=== PATIENT | female | born 1935 | race Caucasian/White ===

== ENCOUNTER 2018-03-03 18:31 | Emergency (ER) | payer MEDICARE, OTHER | END 2018-03-03 18:45 | disposition left against medical advice (07) | LOC: JD.ED 18:31 | DX: Z53.21 Procedure and treatment not carried out due to patient leaving prior to being seen by health care provider (principal) | CPT/HCPCS: 96361; 96365; 96375; 96376 ==

== ENCOUNTER 2018-03-03 21:10 | Inpatient (IN) | payer MEDICARE, OTHER ==
[2018-03-03] MEDS ORDERED: Sodium Chloride 0.9% 1,000 ML IV SCH (22:00)
--- NOTE | 2018-03-03 22:13 | EDM.PDOC ---
<Mikael Christianson O - Last Filed: 03/04/18 00:12> ED HPI GENERAL MEDICAL PROBLEM - General Chief Complaint: Abdominal Pain Stated Complaint: ABDOMINAL PAIN Time Seen by Provider: 03/03/18 21:45 Source of Information: Reports: Patient History Limitations: Reports: No Limitations - History of Present Illness INITIAL COMMENTS - FREE TEXT/NARRATIVE: Patient is a 82-year-old female presents ED complaining of persistent nausea, abdominal discomfort, and constipation. Patient underwent total right knee replacement 1 week ago has been nauseated ever since. States her appetite has been poor. She's been drinking fluids with no issues. States she's not had a good bowel movement since surgery. Since then she's had multiple small bowel movements described as not gets. No blood present. No pain with urination. No increased flatulence noted. Nauseous persisted with a poor appetite unable to take any medications this evening. Blood pressures elevated with examination. She has not taken her amlodipine, losartan, and Coreg. Patient denies any chest pain, shortness of breath, fever chills, dysuria, syncope, or any additional complaints. Dressing to the right knee was changed yesterday with no concerning findings. She has not been taking Percocet for pain. Tylenol only. Treatments BOTTOM POUNDER CEMENT SHOES: Reports: Other (see below) Other Treatments BOTTOM POUNDER CEMENT SHOES: ttlenol about 1600 today - Related Data Allergies Allergy/AdvReac Type Severity Reaction Status Date / Time animal dander Allergy Cannot Verified 02/19/18 13:12 Remember seasonal Allergy Cannot Uncoded 02/19/18 13:12 Remember Home Meds: Home Meds ALPRAZolam [Xanax] 0.5 mg PO TID PRN 06/19/16 [History] Albuterol Sulfate [Proventil Hfa] 2 puff INH DAILY PRN 06/19/16 [History] Levothyroxine [Synthroid] 100 mcg PO DAILY 06/19/16 [History] Carvedilol 6.25 mg PO BID 02/19/18 [History] Escitalopram Oxalate [Lexapro] 5 mg PO DAILY 02/19/18 [History] Losartan [Cozaar] 50 mg PO BEDTIME 02/19/18 [History] Multivitamin [Daily Multiple Vitamin] 1 tab PO DAILY 02/19/18 [History] amLODIPine [Norvasc] 2.5 mg PO BID 02/19/18 [History] Aspirin [Ecotrin] 325 mg PO BID tab.ec 02/23/18 [Rx] oxyCODONE HCl/Acetaminophen [Percocet 5-325 mg Tablet] 1 - 2 tab PO Q6H PRN #60 tablet 02/23/18 [Rx] Ondansetron HCl [Zofran] 4 mg PO Q8H PRN 03/03/18 [History] Promethazine [Phenergan] 1 applic TOP ASDIRECTED 03/03/18 [History] Past Medical History HEENT History: Reports: Impaired Vision, Other (See Below) Other HEENT History: wears glasses, has upper denture Cardiovascular History: Reports: High Cholesterol, Hypertension Respiratory History: Reports: Asthma Gastrointestinal History: Reports: Other (See Below) Other Gastrointestinal History: daniels's esophagus Genitourinary History: Reports: Other (See Below) Other Genitourinary History: kidney disease [employer] History: Reports: Musculoskeletal History: Reports: Osteoarthritis Neurological History: Reports: None Psychiatric History: Reports: Anxiety Endocrine/Metabolic History: Reports: Hypothyroidism Hematologic History: Reports: None Immunologic History: Reports: None Oncologic (Cancer) History: Reports: None Dermatologic History: Reports: None - Past Surgical History Head Surgeries/Procedures: Reports: None HEENT Surgical History: Reports: Tonsillectomy Cardiovascular Surgical History: Reports: None GI Surgical History: Reports: Colonoscopy, EGD Female Surgical History: Reports: Tubal Ligation Endocrine Surgical History: Reports: None Neurological Surgical History: Reports: None Musculoskeletal Surgical History: Reports: None, Knee Replacement Oncologic Surgical History: Reports: None Social & Family History - Tobacco Use Smoking Status *Q: Former Smoker Used Tobacco, but Quit: Yes Month/Year Tobacco Last Used: 1971 - Caffeine Use Caffeine Use: Reports: Coffee, Soda - Recreational Drug Use Recreational Drug Use: No ED ROS GENERAL - Review of Systems Review Of Systems: ROS reveals no pertinent complaints other than HPI. Constitutional: Reports: Malaise, Decreased Appetite. Denies: Fever, Chills HEENT: Reports: No Symptoms Respiratory: Reports: No Symptoms Cardiovascular: Reports: No Symptoms GI/Abdominal: Reports: Abdominal Pain, Constipation, Decreased Appetite, Distension, Nausea. Denies: Black Stool, Bloody Stool, Diarrhea, Difficulty Swallowing, Flatus, Hematemesis, Melena, Vomiting : Reports: No Symptoms Musculoskeletal: Reports: No Symptoms Skin: Reports: No Symptoms Neurological: Reports: No Symptoms Psychiatric: Reports: No Symptoms ED EXAM, GI/ABD - Physical Exam Exam: See Below Exam Limited By: No Limitations General Appearance: Alert, WD/WN, Mild Distress Ears: Hearing Grossly Normal Nose: Normal Inspection Throat/Mouth: Normal Inspection, Normal Oropharynx, Normal Voice, No Airway Compromise Head: Atraumatic, Normocephalic Neck: Normal Inspection, Supple, Full Range of Motion Respiratory/Chest: No Respiratory Distress, Lungs Clear, Normal Breath Sounds, Chest Non-Tender Cardiovascular: Normal Peripheral Pulses, Regular Rate, Rhythm, No Murmur GI/Abdominal Exam: Soft, Non-Tender, No Organomegaly, No Distention, Abnormal Bowel Sounds (hyperactive) Back Exam: Normal Inspection. No: CVA Tenderness (L), CVA Tenderness (R) Extremities: No Pedal Edema, Other (Surgical dressing in place to the right knee. Replaced yesterday in clincic by Ortho. Compression stocking in place with no posterior lower leg pain. ) Neurological: Alert, Oriented, CN II-XII Intact, Normal Cognition, No Motor/ Sensory Deficits Psychiatric: Normal Affect, Normal Mood Skin Exam: Warm, Dry, Intact, Normal Color Course - Vital Signs Last Recorded V/S: Last Vital Signs Temp 98.1 F 03/03/18 21:31 Pulse 65 03/04/18 00:39 Resp 20 03/03/18 21:31 BP 178/77 H 03/04/18 00:39 Pulse Ox 97 03/03/18 21:31 - Orders/Labs/Meds Orders: Active Orders 24 hr Category Date Time Status EKG 12 Lead [EKG Documentation Completion] [RC] STAT Care 03/03/18 22:05 Active Orthostatic Vital Signs [RC] ASDIRECTED Care 03/03/18 21:47 Active Abdomen 2V AP Flat Upright [CR] Stat Exams 03/03/18 21:46 Taken Abdomen Pelvis w Cont [CT] Stat Exams 03/03/18 22:48 Taken Sodium Chloride 0.9% [Normal Saline] 1,000 ml Med 03/03/18 22:00 Active IV ASDIRECTED Medication Orders Sodium Chloride (Normal Saline) 1,000 mls @ 250 mls/hr IV ASDIRECTED FITO Last Admin: 03/03/18 22:29 Dose: 250 mls/hr Labs: Laboratory Tests 03/03/18 03/03/18 03/03/18 Range/Units 22:29 22:29 22:29 WBC 12.38 H (3.98-10.04) K/mm3 RBC 4.01 (3.98-5.22) M/mm3 Hgb 12.5 (11.2-15.7) gm/L Hct 35.6 (34.1-44.9) % MCV 88.8 (79.4-94.8) fl MCH 31.2 (25.6-32.2) pg MCHC 35.1 (32.2-35.5) g/dl RDW Std Deviation 37.6 (36.4-46.3) fL Plt Count 442 H (182-369) K/mm3 MPV 7.7 L (9.4-12.3) fl Neutrophils % (Manual) 72 H (40-60) % Band Neutrophils % 0 (0-10) % Lymphocytes % (Manual) 9 L (20-40) % Atypical Lymphs % 3 % Monocytes % (Manual) 12 H (2-10) % Eosinophils % (Manual) 3 (0.7-5.8) % Basophils % (Manual) 0 L (0.1-1.2) Promyelocytes % 1 Toxic Granulation 1+ slight Platelet Estimate Increased Plt Morphology Comment Normal RBC Morph Comment Normal Sodium 122 L (136-145) mEq/L Potassium 4.2 (3.5-5.1) mEq/L Chloride 87 L (98-107) mEq/L Carbon Dioxide 24 (21-32) mEq/L Anion Gap 15.2 H (5-15) BUN 13 (7-18) mg/dL Creatinine 0.8 (0.55-1.02) mg/dL Est Cr Clr Drug Dosing 58.61 mL/min Estimated GFR (MDRD) > 60 (>60) mL/min BUN/Creatinine Ratio 16.3 (14-18) Glucose 127 H (83-115) mg/dL Calcium 9.0 (8.5-10.1) mg/dL Total Bilirubin 0.9 (0.2-1.0) mg/dL AST 28 (15-37) U/L ALT 24 (14-59) U/L Alkaline Phosphatase 63 (46-116) U/L Troponin I < 0.017 (0.00-0.056) ng/mL C-Reactive Protein 1.9 H* (<1.0) mg/dL Total Protein 7.5 (6.4-8.2) g/dl Albumin 3.6 (3.4-5.0) g/dl Globulin 3.9 gm/dL Albumin/Globulin Ratio 0.9 L (1-2) Urine Color (Yellow) Urine Appearance (Clear) Urine pH (5.0-8.0) Ur Specific [place] (1.005-1.030) Urine Protein (Negative) Urine Glucose (UA) (Negative) Urine Ketones (Negative) Urine Occult Blood (Negative) Urine Nitrite (Negative) Urine Bilirubin (Negative) Urine Urobilinogen (0.2-1.0) Ur Leukocyte Esterase (Negative) Urine RBC (0-5) /hpf Urine WBC (0-5) /hpf Urine WBC Clumps (NOT SEEN) /hpf Ur Epithelial Cells (0-5) /hpf Urine Bacteria (FEW) /hpf Urine Mucus (FEW) /hpf 03/04/18 Range/Units 02:30 WBC (3.98-10.04) K/mm3 RBC (3.98-5.22) M/mm3 Hgb (11.2-15.7) gm/L Hct (34.1-44.9) % MCV (79.4-94.8) fl MCH (25.6-32.2) pg MCHC (32.2-35.5) g/dl RDW Std Deviation (36.4-46.3) fL Plt Count (182-369) K/mm3 MPV (9.4-12.3) fl Neutrophils % (Manual) (40-60) % Band Neutrophils % (0-10) % Lymphocytes % (Manual) (20-40) % Atypical Lymphs % % Monocytes % (Manual) (2-10) % Eosinophils % (Manual) (0.7-5.8) % Basophils % (Manual) (0.1-1.2) Promyelocytes % Toxic Granulation Platelet Estimate Plt Morphology Comment RBC Morph Comment Sodium (136-145) mEq/L Potassium (3.5-5.1) mEq/L Chloride (98-107) mEq/L Carbon Dioxide (21-32) mEq/L Anion Gap (5-15) BUN (7-18) mg/dL Creatinine (0.55-1.02) mg/dL Est Cr Clr Drug Dosing mL/min Estimated GFR (MDRD) (>60) mL/min BUN/Creatinine Ratio (14-18) Glucose (83-115) mg/dL Calcium (8.5-10.1) mg/dL Total Bilirubin (0.2-1.0) mg/dL AST (15-37) U/L ALT (14-59) U/L Alkaline Phosphatase (46-116) U/L Troponin I (0.00-0.056) ng/mL C-Reactive Protein (<1.0) mg/dL Total Protein (6.4-8.2) g/dl Albumin (3.4-5.0) g/dl Globulin gm/dL Albumin/Globulin Ratio (1-2) Urine Color Yellow (Yellow) Urine Appearance Clear (Clear) Urine pH 6.0 (5.0-8.0) Ur Specific [place] 1.015 (1.005-1.030) Urine Protein Negative (Negative) Urine Glucose (UA) Negative (Negative) Urine Ketones Negative (Negative) Urine Occult Blood Trace-intact H (Negative) Urine Nitrite Negative (Negative) Urine Bilirubin Negative (Negative) Urine Urobilinogen 2.0 H (0.2-1.0) Ur Leukocyte Esterase Negative (Negative) Urine RBC 0-5 (0-5) /hpf Urine WBC 0-5 (0-5) /hpf Urine WBC Clumps Few (NOT SEEN) /hpf Ur Epithelial Cells 0-5 (0-5) /hpf Urine Bacteria Rare (FEW) /hpf Urine Mucus Not seen (FEW) /hpf Meds: Medications Generic Name Dose Route Start Last Admin Trade Name Freq PRN Reason Stop Dose Admin Sodium Chloride 1,000 mls @ 250 mls/hr 03/03/18 22:00 03/03/18 22:29 Normal Saline IV 250 mls/hr ASDIRECTED FITO Administration Discontinued Medications Generic Name Dose Route Start Last Admin Trade Name Freq PRN Reason Stop Dose Admin Labetalol HCl 10 mg 03/03/18 22:56 03/03/18 23:03 Normodyne IVPUSH 03/03/18 22:57 10 mg ONETIME ONE Administration Protocol Labetalol HCl 10 mg 03/04/18 00:14 03/04/18 00:39 Normodyne IVPUSH 03/04/18 00:15 10 mg ONETIME ONE Administration Protocol Ondansetron HCl 4 mg 03/03/18 22:15 03/03/18 22:29 Zofran IVPUSH 03/03/18 22:16 4 mg ONETIME ONE Administration - Re-Assessments/Exams Free Text/Narrative Re-Assessment/Exam: IV established with normal saline 250 mL per hour. IV Zofran ordered as well. Initial labs and studies include: CBC, chem 14, CRP, UA, troponin, 2 view abdomen flat and upright, and orthostatic vitals. EKG: SR rate of [address] changes noted. Xray of the abdomen: Large air/fluid level to the RLQ. Ordered CT abdomen/ pelvis with oral/IV contrast. 2258 BP 188/82. Patient has not taken any of her blood pressure medications this evening. Ordered labetalol 10 mg IVP. 0000 Labs reviewed: Sodium 122, potassium 4.2, chloride 87, AG 15.2, creatinine 0.8, glucose 127, troponin within normal limits, CRP 1.9. White blood cell count 12.8, hemoglobin 12.5, platelet count 442, neutrophil percentage is 72, no left shift. Patient does not provide a UA sample yet. Blood pressure remains elevated 182/S. Ordered additional 10mg IVP of labetalol. Departure - Departure Disposition: Admitted As Inpatient 68 Clinical Impression: Hyponatremia, Colitis, Nausea, Mass of stomach - Discharge Information Referrals: Jayden Smith MD [Primary Care Provider] - Forms: ED Department Discharge <Jorge Hernandez - Last Filed: 03/04/18 03:31> Course - Re-Assessments/Exams Free Text/Narrative Re-Assessment/Exam: 03/04/18 03:[address] came back and it shows mild colitis involving the transverse colon. No evidence for abscess or bowel obstruction. Soft tissue mass noted at the GE junction. This measures 5.6cm in diameter. Endoscopy is suggested to rule out a GE neoplasm or polyp. Her UA shows no UTI. I feel she needs to be admitted. I called Dr Parrish and she accepted. She wanted some levaquin started and her rate for fluids down to 100mg/hr. Departure - Departure Time of Disposition: 03:30 Condition: Good
[2018-03-03] MEDS ORDERED: Ondansetron 4 MG/2 ML SDV IVPUSH ONE (22:15)
[2018-03-03] MEDS ORDERED: Labetalol 100 MG/20 ML MDV IVPUSH ONE (22:56)
[2018-03-04] MEDS ORDERED: Labetalol 100 MG/20 ML MDV IVPUSH ONE (00:14)
[2018-03-04] MEDS ORDERED: Levofloxacin/Dextrose 5%-Water 750 MG in Premix Bag 1 BAG IV ONE (03:33)
[2018-03-04] MEDS: Sodium Chloride 0.9% 1,000 ML IV SCH ×2 (03:42→14:05)
[2018-03-04] MEDS ORDERED: Magnesium Sulfate/Water 2 GM in Premix Bag 1 BAG IV ONE (04:41)
[2018-03-04] MEDS ORDERED: HYDROmorphone 1 MG/ML Syringe IVPUSH PRN (04:42)
[2018-03-04] MEDS: Ondansetron 4 MG/2 ML SDV IVPUSH PRN ×2 (05:48→17:42)
[2018-03-04] MEDS: Famotidine 20 MG/2 ML SDV IVPUSH SCH (10:18)
[2018-03-04] MEDS ORDERED: HYDROmorphone 0.5 MG/0.5 ML Syringe IVPUSH PRN (10:37)
[2018-03-04] MEDS ORDERED: Scopolamine 1.5 MG Transdermal Patch TRDERM PRN (11:17)
--- NOTE | 2018-03-04 12:15 | PCM.HP ---
<Penelope Dale - Last Filed: 03/04/18 13:43> H&P History of Present Illness - General Date of Service: 03/04/18 Admit Problem/Dx: Admission Diagnosis/Problem Admission Diagnosis/Problem Colitis Source of Information: Patient History Limitations: Reports: No Limitations - History of Present Illness Initial Comments - Free Text/Narative: Lashell Georges is an 82 year old female who presented to the ER yesterday complaining of persistent nausea, abdominal discomfort, and constipation. Patient underwent total right knee replacement on February 22 and has been nauseated ever since. States her appetite has been poor, eating <25% of normal. She's been drinking fluids with no issues. States she's not had a good bowel movement since surgery. Since then she's had multiple small bowel movements described as nuggets. Denies black/tarry stools or blood in stools. No pain with urination. No increased flatulence noted. Nauseous persisted with a poor appetite unable to take any medications yesterday evening. Blood pressures elevated with examination. She has not taken her amlodipine, losartan, and carvedilol. Patient denies any chest pain, shortness of breath, fever chills, dysuria, syncope, or any additional complaints. Dressing to the right knee was changed 2 days ago with no concerning findings. She has not been taking Percocet for pain. Tylenol only. Today, the patient reports relief of the abdominal discomfort which she believes is from contrast associated diarrhea overnight. Her nausea persists. Has not vomited since the day after surgery. Onset of Symptoms: Reports: Other (Nauseous since knee replacement, abdominal discomfort gradual) Associated Symptoms: Reports: Loss of Appetite - Related Data Allergies/Adverse Reactions: Allergies Allergy/AdvReac Type Severity Reaction Status Date / Time animal dander Allergy Cannot Verified 02/19/18 13:12 Remember seasonal Allergy Cannot Uncoded 02/19/18 13:12 Remember Home Medications: Home Meds ALPRAZolam [Xanax] 0.5 mg PO TID PRN 06/19/16 [History] Albuterol Sulfate [Proventil Hfa] 2 puff INH DAILY PRN 06/19/16 [History] Levothyroxine [Synthroid] 100 mcg PO DAILY 06/19/16 [History] Carvedilol 6.25 mg PO BID 02/19/18 [History] Escitalopram Oxalate [Lexapro] 5 mg PO DAILY 02/19/18 [History] Losartan [Cozaar] 50 mg PO BEDTIME 02/19/18 [History] Multivitamin [Daily Multiple Vitamin] 1 tab PO DAILY 02/19/18 [History] amLODIPine [Norvasc] 2.5 mg PO BID 02/19/18 [History] Aspirin [Ecotrin] 325 mg PO BID tab.ec 02/23/18 [Rx] oxyCODONE HCl/Acetaminophen [Percocet 5-325 mg Tablet] 1 - 2 tab PO Q6H PRN #60 tablet 02/23/18 [Rx] Ondansetron HCl [Zofran] 4 mg PO Q8H PRN 03/03/18 [History] Promethazine [Phenergan] 1 applic TOP ASDIRECTED 03/03/18 [History] Past Medical History HEENT History: Reports: Impaired Vision, Other (See Below) Other HEENT History: wears glasses, has upper denture Cardiovascular History: Reports: High Cholesterol, Hypertension Respiratory History: Reports: Asthma Gastrointestinal History: Reports: Other (See Below) Other Gastrointestinal History: Colonoscopy in 2015 notable for hyperplastic polyps, tubular adenoma, and sessile serrated adenoma. 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: (4 children; tubal ligation) Musculoskeletal History: Reports: Osteoarthritis Neurological History: Reports: None Psychiatric History: Reports: Anxiety Endocrine/Metabolic History: Reports: Hypothyroidism Hematologic History: Reports: None Immunologic History: Reports: None Oncologic (Cancer) History: Reports: None Dermatologic History: Reports: None - Past Surgical History Head Surgeries/Procedures: Reports: None HEENT Surgical History: Reports: Tonsillectomy Cardiovascular Surgical History: Reports: None GI Surgical History: Reports: Colonoscopy, EGD Female Surgical History: Reports: Tubal Ligation Endocrine Surgical History: Reports: None Neurological Surgical History: Reports: None Musculoskeletal Surgical History: Reports: None, Knee Replacement Oncologic Surgical History: Reports: None Social & Family History - Family History Family Medical History: Noncontributory - Tobacco Use Smoking Status *Q: Former Smoker (1 pack per day for 18 years) Years of Tobacco use: 16 Used Tobacco, but Quit: Yes Month/Year Tobacco Last Used: 1971 Second Hand Smoke Exposure: No - Caffeine Use Caffeine Use: Reports: Coffee - Recreational Drug Use Recreational Drug Use: No H&P Review of Systems - Review of Systems: Review Of Systems: See Below General: Reports: Decreased Appetite. Denies: Fever, Chills, Weakness HEENT: Reports: Glasses. Denies: Dysphasia, Ear Pain, Eye Pain, Headaches, Visual Changes Pulmonary: Reports: No Symptoms Cardiovascular: Reports: No Symptoms Gastrointestinal: Reports: Abdominal Pain (Resolved), Constipation (Resolved), Diarrhea (Due to CT contrast), Decreased Appetite, Nausea. Denies: Black Stool , Bloody Stool, Difficulty Swallowing, Hematemesis, Hematochezia, Melena Genitourinary: Reports: No Symptoms Musculoskeletal: Reports: No Symptoms (States that she is moving around well and not having problems with her joint replacement) Skin: Reports: No Symptoms, Bruising (To surgical area) Psychiatric: Reports: No Symptoms Neurological: Reports: No Symptoms Hematologic/Lymphatic: Reports: No Symptoms Immunologic: Reports: Seasonal Allergy Exam - Exam Exam: See Below - Vital Signs Vital Signs: Last Vital Signs Temp 98.1 F 03/04/18 04:18 Pulse 67 03/04/18 04:18 Resp 18 03/04/18 04:18 BP 139/62 03/04/18 04:18 Pulse Ox 96 03/04/18 04:18 Weight: 164 lb 1 oz - Exam Quality Assessment: DVT Prophylaxis General: Alert, Oriented, Cooperative HEENT: Conjunctiva Clear, EOMI, Hearing Intact, Mucosa Moist & [place], Nares Patent, Pupils Equal, Pupils Reactive Neck: Supple, +2 Carotid Pulse wo Bruit, Full Range of Motion. No: Lymphadenopathy Lungs: Clear to Auscultation, Normal Respiratory Effort Cardiovascular: Regular Rate, Regular Rhythm, Normal S1, Normal S2 GI/Abdominal Exam: Soft, Non-Tender, Abnormal Bowel Sounds (Hyperactive) (Female) Exam: Deferred Rectal (Female) Exam: Deferred Back Exam: Normal Inspection, Full Range of Motion Extremities: Normal Inspection, Normal Range of Motion, Non-Tender, No Pedal Edema, Normal Capillary Refill Peripheral Pulses: 2+: Carotid (L), Carotid (R), Radial (L), Radial (R), Posterior Tibial (L), Posterior Tibial (R), Dorsalis Pedis (L), Dorsalis Pedis ( R) Skin: Warm, Dry, Intact Neurological: Cranial Nerves Intact, Normal Gait, Normal Speech Neuro Extensive - Mental Status: Alert, Oriented x3, Normal Mood/Affect, Normal Cognition Neuro Extensive - Motor, Sensory, Reflexes: CN II-XII Intact (Grossly), Normal Gait Psychiatric: Alert, Normal Affect, Normal Mood - Patient Data Lab Results Last 24 hrs: Laboratory Results - last 24 hr 03/03/18 03/03/18 03/03/18 Range/Units 22:29 22:29 22:29 WBC 12.38 H (3.98-10.04) K/mm3 RBC 4.01 (3.98-5.22) M/mm3 Hgb 12.5 (11.2-15.7) gm/L Hct 35.6 (34.1-44.9) % MCV 88.8 (79.4-94.8) fl MCH 31.2 (25.6-32.2) pg MCHC 35.1 (32.2-35.5) g/dl RDW Std Deviation 37.6 (36.4-46.3) fL Plt Count 442 H (182-369) K/mm3 MPV 7.7 L (9.4-12.3) fl Neutrophils % (Manual) 72 H (40-60) % Band Neutrophils % 0 (0-10) % Lymphocytes % (Manual) 9 L (20-40) % Atypical Lymphs % 3 % Monocytes % (Manual) 12 H (2-10) % Eosinophils % (Manual) 3 (0.7-5.8) % Basophils % (Manual) 0 L (0.1-1.2) Promyelocytes % 1 Toxic Granulation 1+ slight Platelet Estimate Increased Plt Morphology Comment Normal Poikilocytosis Anisocytosis RBC Morph Comment Normal Sodium 122 L (136-145) mEq/L Potassium 4.2 (3.5-5.1) mEq/L Chloride 87 L (98-107) mEq/L Carbon Dioxide 24 (21-32) mEq/L Anion Gap 15.2 H (5-15) BUN 13 (7-18) mg/dL Creatinine 0.8 (0.55-1.02) mg/dL Est Cr Clr Drug Dosing 58.61 mL/min Estimated GFR (MDRD) > 60 (>60) mL/min BUN/Creatinine Ratio 16.3 (14-18) Glucose 127 H (83-115) mg/dL Lactic Acid (0.4-2.0) mmol/L Calcium 9.0 (8.5-10.1) mg/dL Total Bilirubin 0.9 (0.2-1.0) mg/dL AST 28 (15-37) U/L ALT 24 (14-59) U/L Alkaline Phosphatase 63 (46-116) U/L Troponin I < 0.017 (0.00-0.056) ng/mL C-Reactive Protein 1.9 H* (<1.0) mg/dL NT-Pro-B Natriuret Pep (0-450) pg/mL Total Protein 7.5 (6.4-8.2) g/dl Albumin 3.6 (3.4-5.0) g/dl Globulin 3.9 gm/dL Albumin/Globulin Ratio 0.9 L (1-2) Urine Color (Yellow) Urine Appearance (Clear) Urine pH (5.0-8.0) Ur Specific [place] (1.005-1.030) Urine Protein (Negative) Urine Glucose (UA) (Negative) Urine Ketones (Negative) Urine Occult Blood (Negative) Urine Nitrite (Negative) Urine Bilirubin (Negative) Urine Urobilinogen (0.2-1.0) Ur Leukocyte Esterase (Negative) Urine RBC (0-5) /hpf Urine WBC (0-5) /hpf Urine WBC Clumps (NOT SEEN) /hpf Ur Epithelial Cells (0-5) /hpf Urine Bacteria (FEW) /hpf Urine Mucus (FEW) /hpf 03/04/18 03/04/18 03/04/18 Range/Units 02:30 05:40 05:40 WBC 12.08 H (3.98-10.04) K/mm3 RBC 3.61 L (3.98-5.22) M/mm3 Hgb 11.0 L (11.2-15.7) gm/L Hct 32.0 L (34.1-44.9) % MCV 88.6 (79.4-94.8) fl MCH 30.5 (25.6-32.2) pg MCHC 34.4 (32.2-35.5) g/dl RDW Std Deviation 37.7 (36.4-46.3) fL Plt Count 426 H (182-369) K/mm3 MPV 7.9 L (9.4-12.3) fl Neutrophils % (Manual) 77 H (40-60) % Band Neutrophils % 1 (0-10) % Lymphocytes % (Manual) 18 L (20-40) % Atypical Lymphs % 0 % Monocytes % (Manual) 1 L (2-10) % Eosinophils % (Manual) 2 (0.7-5.8) % Basophils % (Manual) 1 (0.1-1.2) Promyelocytes % Toxic Granulation Platelet Estimate Adequate Plt Morphology Comment Poikilocytosis 1+ slight Anisocytosis 1+ slight RBC Morph Comment inpatient auditor Sodium 121 L (136-145) mEq/L Potassium 3.9 (3.5-5.1) mEq/L Chloride 89 L (98-107) mEq/L Carbon Dioxide 23 (21-32) mEq/L Anion Gap 12.9 (5-15) BUN 10 (7-18) mg/dL Creatinine 0.7 (0.55-1.02) mg/dL Est Cr Clr Drug Dosing 66.99 mL/min Estimated GFR (MDRD) > 60 (>60) mL/min BUN/Creatinine Ratio 14.3 (14-18) Glucose 129 H (83-115) mg/dL Lactic Acid (0.4-2.0) mmol/L Calcium 7.8 L (8.5-10.1) mg/dL Total Bilirubin (0.2-1.0) mg/dL AST (15-37) U/L ALT (14-59) U/L Alkaline Phosphatase (46-116) U/L Troponin I (0.00-0.056) ng/mL C-Reactive Protein 1.6 H* (<1.0) mg/dL NT-Pro-B Natriuret Pep (0-450) pg/mL Total Protein (6.4-8.2) g/dl Albumin (3.4-5.0) g/dl Globulin gm/dL Albumin/Globulin Ratio (1-2) Urine Color Yellow (Yellow) Urine Appearance Clear (Clear) Urine pH 6.0 (5.0-8.0) Ur Specific [place] 1.015 (1.005-1.030) Urine Protein Negative (Negative) Urine Glucose (UA) Negative (Negative) Urine Ketones Negative (Negative) Urine Occult Blood Trace-intact H (Negative) Urine Nitrite Negative (Negative) Urine Bilirubin Negative (Negative) Urine Urobilinogen 2.0 H (0.2-1.0) Ur Leukocyte Esterase Negative (Negative) Urine RBC 0-5 (0-5) /hpf Urine WBC 0-5 (0-5) /hpf Urine WBC Clumps Few (NOT SEEN) /hpf Ur Epithelial Cells 0-5 (0-5) /hpf Urine Bacteria Rare (FEW) /hpf Urine Mucus Not seen (FEW) /hpf 03/04/18 03/04/18 Range/Units 05:40 05:40 WBC (3.98-10.04) K/mm3 RBC (3.98-5.22) M/mm3 Hgb (11.2-15.7) gm/L Hct (34.1-44.9) % MCV (79.4-94.8) fl MCH (25.6-32.2) pg MCHC (32.2-35.5) g/dl RDW Std Deviation (36.4-46.3) fL Plt Count (182-369) K/mm3 MPV (9.4-12.3) fl Neutrophils % (Manual) (40-60) % Band Neutrophils % (0-10) % Lymphocytes % (Manual) (20-40) % Atypical Lymphs % % Monocytes % (Manual) (2-10) % Eosinophils % (Manual) (0.7-5.8) % Basophils % (Manual) (0.1-1.2) Promyelocytes % Toxic Granulation Platelet Estimate Plt Morphology Comment Poikilocytosis Anisocytosis RBC Morph Comment Sodium (136-145) mEq/L Potassium (3.5-5.1) mEq/L Chloride (98-107) mEq/L Carbon Dioxide (21-32) mEq/L Anion Gap (5-15) BUN (7-18) mg/dL Creatinine (0.55-1.02) mg/dL Est Cr Clr Drug Dosing mL/min Estimated GFR (MDRD) (>60) mL/min BUN/Creatinine Ratio (14-18) Glucose (83-115) mg/dL Lactic Acid 0.8 (0.4-2.0) mmol/L Calcium (8.5-10.1) mg/dL Total Bilirubin (0.2-1.0) mg/dL AST (15-37) U/L ALT (14-59) U/L Alkaline Phosphatase (46-116) U/L Troponin I (0.00-0.056) ng/mL C-Reactive Protein (<1.0) mg/dL NT-Pro-B Natriuret Pep 533 H (0-450) pg/mL Total Protein (6.4-8.2) g/dl Albumin (3.4-5.0) g/dl Globulin gm/dL Albumin/Globulin Ratio (1-2) Urine Color (Yellow) Urine Appearance (Clear) Urine pH (5.0-8.0) Ur Specific [place] (1.005-1.030) Urine Protein (Negative) Urine Glucose (UA) (Negative) Urine Ketones (Negative) Urine Occult Blood (Negative) Urine Nitrite (Negative) Urine Bilirubin (Negative) Urine Urobilinogen (0.2-1.0) Ur Leukocyte Esterase (Negative) Urine RBC (0-5) /hpf Urine WBC (0-5) /hpf Urine WBC Clumps (NOT SEEN) /hpf Ur Epithelial Cells (0-5) /hpf Urine Bacteria (FEW) /hpf Urine Mucus (FEW) /hpf Result Diagrams: 03/04/18 05:40 03/04/18 05:40 Problem List Initiated/Reviewed/Updated: Yes Orders Last 24hrs: Active Orders 24 hr Category Date Time Status Patient Status [ADT] Routine ADT 03/04/18 03:28 Active Activity as Tolerated [RC] .Routine Care 03/04/18 04:57 Active Bedrest [RC] ASDIRECTED Care 03/04/18 04:47 Active Notify Provider Consults [RC] ASDIRECTED Care 03/04/18 10:06 Active Consult to Case Management [CONS] Routine Cons 03/04/18 04:46 Active Consult to Physician [CONS] Routine Cons 03/04/18 10:05 Active OT Evaluation and Treatment [CONS] Routine Cons 03/04/18 04:46 Active PT Evaluation and Treatment [CONS] Routine Cons 03/04/18 04:45 Active Clear Liquid Diet [DIET] Diet 03/04/18 Breakfast Active Abdomen 2V AP Flat Upright [CR] Stat Exams 03/03/18 21:46 Taken Abdomen Pelvis w Cont [CT] Stat Exams 03/03/18 22:48 Taken Acetaminophen [Tylenol] Med 03/04/18 04:43 Active 650 mg PO Q6H PRN Famotidine [Pepcid] Med 03/04/18 09:00 Active 40 mg IVPUSH DAILY HYDROmorphone [Dilaudid] Med 03/04/18 10:37 Active 0.5 mg IVPUSH Q4H PRN Levofloxacin/Dextrose 5%-Water [Levaquin in D5W 750 MG/ Med 03/05/18 04:00 Active 150 ML] 750 mg Premix Bag 1 bag IV Q24H Ondansetron [Zofran] Med 03/04/18 04:43 Active 4 mg IVPUSH Q8H PRN Remove Patch Med 03/07/18 11:00 Active 1 ea TRDERM Q72H Scopolamine [Transderm-Scop] Med 03/04/18 11:17 Active 1.5 mg TRDERM Q72H PRN Sodium Chloride 0.9% [Normal Saline] 1,000 ml Med 03/04/18 03:45 Active IV ASDIRECTED SCD [Sequential Compression Device] [OM.PC] Routine Oth 03/04/18 04:45 Ordered Code Status [Resuscitation Status] Routine Resus Stat 03/04/18 04:46 Ordered Medication Orders Acetaminophen (Tylenol) 650 mg PO Q6H PRN PRN Reason: Pain/Fever Famotidine (Pepcid) 40 mg IVPUSH DAILY FITO Last Admin: 03/04/18 10:18 Dose: 40 mg Hydromorphone HCl (Dilaudid) 0.5 mg IVPUSH Q4H PRN PRN Reason: Pain Sodium Chloride (Normal Saline) 1,000 mls @ 100 mls/hr IV ASDIRECTED FITO Last Admin: 03/04/18 03:42 Dose: 100 mls/hr Levofloxacin/Dextrose 750 mg/ (Premix) 150 mls @ 100 mls/hr IV Q24H FITO Miscellaneous Information (Remove Patch) 1 ea TRDERM Q72H FITO Ondansetron HCl (Zofran) 4 mg IVPUSH Q8H PRN PRN Reason: Nausea/Vomiting Last Admin: 03/04/18 05:48 Dose: 4 mg Scopolamine (Transderm-Scop) 1.5 mg TRDERM Q72H PRN PRN Reason: Nausea Last Admin: 03/04/18 11:30 Dose: 1.5 mg Assessment/Plan Comment:: Assessment: Acute: Nausea * Severe nausea since knee replacement February 22 * Patient reports tolerating liquids, but very poor food intake. Denies vomiting since one day after surgery. * Odansetron and scopolamine patch not offering much relief Colitis * Transverse colon colitis noted on CT scan * Patient presented with nausea, constipation, and abdominal discomfort * Constipation and abdominal discomfort have resolved * WBC elevated at 12.38 --> 12.08 Hyponatremia * Sodium 122 * Last 2 annual CMPs with her PCP have showed a sodium of 133 Hypertension * Acute on chronic * Due to inability to take medications 2/2 nausea * 178/77 --> 139/62 with IV labetalol Gastroesophageal Junction Mass * As evidenced by CT scan * Edmondson's esophagus diagnosed by EGD in 2016; patient denies ever experiencing GERD Chronic: Hypercholesterolemia Asthma Osteoarthritis Hypothyroidism Anxiety Plan: Admit to medical floor Clear liquid diet, advance as tolerated Continue IV hydration Resume home medications Routine AM labs Consulted Dr. Landry (surgeon) DVT prophylaxis: SCDs GI prophylaxis PT/OT Code status: Full code; PCP Dr. Kenney <Nhung Lima - Last Filed: 03/04/18 15:40> H&P History of Present Illness - General Admit Problem/Dx: Admission Diagnosis/Problem Admission Diagnosis/Problem Colitis Exam - Vital Signs Vital Signs: Last Vital Signs Temp 98.1 F 03/04/18 04:18 Pulse 67 03/04/18 04:18 Resp 18 03/04/18 04:18 BP 139/62 03/04/18 04:18 Pulse Ox 96 03/04/18 04:18 - Patient Data Lab Results Last 24 hrs: Laboratory Results - last 24 hr 03/03/18 03/03/18 03/03/18 Range/Units 22:29 22:29 22:29 WBC 12.38 H (3.98-10.04) K/mm3 RBC 4.01 (3.98-5.22) M/mm3 Hgb 12.5 (11.2-15.7) gm/L Hct 35.6 (34.1-44.9) % MCV 88.8 (79.4-94.8) fl MCH 31.2 (25.6-32.2) pg MCHC 35.1 (32.2-35.5) g/dl RDW Std Deviation 37.6 (36.4-46.3) fL Plt Count 442 H (182-369) K/mm3 MPV 7.7 L (9.4-12.3) fl Neutrophils % (Manual) 72 H (40-60) % Band Neutrophils % 0 (0-10) % Lymphocytes % (Manual) 9 L (20-40) % Atypical Lymphs % 3 % Monocytes % (Manual) 12 H (2-10) % Eosinophils % (Manual) 3 (0.7-5.8) % Basophils % (Manual) 0 L (0.1-1.2) Promyelocytes % 1 Toxic Granulation 1+ slight Platelet Estimate Increased Plt Morphology Comment Normal Poikilocytosis Anisocytosis RBC Morph Comment Normal Sodium 122 L (136-145) mEq/L Potassium 4.2 (3.5-5.1) mEq/L Chloride 87 L (98-107) mEq/L Carbon Dioxide 24 (21-32) mEq/L Anion Gap 15.2 H (5-15) BUN 13 (7-18) mg/dL Creatinine 0.8 (0.55-1.02) mg/dL Est Cr Clr Drug Dosing 58.61 mL/min Estimated GFR (MDRD) > 60 (>60) mL/min BUN/Creatinine Ratio 16.3 (14-18) Glucose 127 H (83-115) mg/dL Lactic Acid (0.4-2.0) mmol/L Calcium 9.0 (8.5-10.1) mg/dL Total Bilirubin 0.9 (0.2-1.0) mg/dL AST 28 (15-37) U/L ALT 24 (14-59) U/L Alkaline Phosphatase 63 (46-116) U/L Troponin I < 0.017 (0.00-0.056) ng/mL C-Reactive Protein 1.9 H* (<1.0) mg/dL NT-Pro-B Natriuret Pep (0-450) pg/mL Total Protein 7.5 (6.4-8.2) g/dl Albumin 3.6 (3.4-5.0) g/dl Globulin 3.9 gm/dL Albumin/Globulin Ratio 0.9 L (1-2) Urine Color (Yellow) Urine Appearance (Clear) Urine pH (5.0-8.0) Ur Specific [place] (1.005-1.030) Urine Protein (Negative) Urine Glucose (UA) (Negative) Urine Ketones (Negative) Urine Occult Blood (Negative) Urine Nitrite (Negative) Urine Bilirubin (Negative) Urine Urobilinogen (0.2-1.0) Ur Leukocyte Esterase (Negative) Urine RBC (0-5) /hpf Urine WBC (0-5) /hpf Urine WBC Clumps (NOT SEEN) /hpf Ur Epithelial Cells (0-5) /hpf Urine Bacteria (FEW) /hpf Urine Mucus (FEW) /hpf 03/04/18 03/04/18 03/04/18 Range/Units 02:30 05:40 05:40 WBC 12.08 H (3.98-10.04) K/mm3 RBC 3.61 L (3.98-5.22) M/mm3 Hgb 11.0 L (11.2-15.7) gm/L Hct 32.0 L (34.1-44.9) % MCV 88.6 (79.4-94.8) fl MCH 30.5 (25.6-32.2) pg MCHC 34.4 (32.2-35.5) g/dl RDW Std Deviation 37.7 (36.4-46.3) fL Plt Count 426 H (182-369) K/mm3 MPV 7.9 L (9.4-12.3) fl Neutrophils % (Manual) 77 H (40-60) % Band Neutrophils % 1 (0-10) % Lymphocytes % (Manual) 18 L (20-40) % Atypical Lymphs % 0 % Monocytes % (Manual) 1 L (2-10) % Eosinophils % (Manual) 2 (0.7-5.8) % Basophils % (Manual) 1 (0.1-1.2) Promyelocytes % Toxic Granulation Platelet Estimate Adequate Plt Morphology Comment Poikilocytosis 1+ slight Anisocytosis 1+ slight RBC Morph Comment inpatient auditor Sodium 121 L (136-145) mEq/L Potassium 3.9 (3.5-5.1) mEq/L Chloride 89 L (98-107) mEq/L Carbon Dioxide 23 (21-32) mEq/L Anion Gap 12.9 (5-15) BUN 10 (7-18) mg/dL Creatinine 0.7 (0.55-1.02) mg/dL Est Cr Clr Drug Dosing 66.99 mL/min Estimated GFR (MDRD) > 60 (>60) mL/min BUN/Creatinine Ratio 14.3 (14-18) Glucose 129 H (83-115) mg/dL Lactic Acid (0.4-2.0) mmol/L Calcium 7.8 L (8.5-10.1) mg/dL Total Bilirubin (0.2-1.0) mg/dL AST (15-37) U/L ALT (14-59) U/L Alkaline Phosphatase (46-116) U/L Troponin I (0.00-0.056) ng/mL C-Reactive Protein 1.6 H* (<1.0) mg/dL NT-Pro-B Natriuret Pep (0-450) pg/mL Total Protein (6.4-8.2) g/dl Albumin (3.4-5.0) g/dl Globulin gm/dL Albumin/Globulin Ratio (1-2) Urine Color Yellow (Yellow) Urine Appearance Clear (Clear) Urine pH 6.0 (5.0-8.0) Ur Specific [place] 1.015 (1.005-1.030) Urine Protein Negative (Negative) Urine Glucose (UA) Negative (Negative) Urine Ketones Negative (Negative) Urine Occult Blood Trace-intact H (Negative) Urine Nitrite Negative (Negative) Urine Bilirubin Negative (Negative) Urine Urobilinogen 2.0 H (0.2-1.0) Ur Leukocyte Esterase Negative (Negative) Urine RBC 0-5 (0-5) /hpf Urine WBC 0-5 (0-5) /hpf Urine WBC Clumps Few (NOT SEEN) /hpf Ur Epithelial Cells 0-5 (0-5) /hpf Urine Bacteria Rare (FEW) /hpf Urine Mucus Not seen (FEW) /hpf 03/04/18 03/04/18 Range/Units 05:40 05:40 WBC (3.98-10.04) K/mm3 RBC (3.98-5.22) M/mm3 Hgb (11.2-15.7) gm/L Hct (34.1-44.9) % MCV (79.4-94.8) fl MCH (25.6-32.2) pg MCHC (32.2-35.5) g/dl RDW Std Deviation (36.4-46.3) fL Plt Count (182-369) K/mm3 MPV (9.4-12.3) fl Neutrophils % (Manual) (40-60) % Band Neutrophils % (0-10) % Lymphocytes % (Manual) (20-40) % Atypical Lymphs % % Monocytes % (Manual) (2-10) % Eosinophils % (Manual) (0.7-5.8) % Basophils % (Manual) (0.1-1.2) Promyelocytes % Toxic Granulation Platelet Estimate Plt Morphology Comment Poikilocytosis Anisocytosis RBC Morph Comment Sodium (136-145) mEq/L Potassium (3.5-5.1) mEq/L Chloride (98-107) mEq/L Carbon Dioxide (21-32) mEq/L Anion Gap (5-15) BUN (7-18) mg/dL Creatinine (0.55-1.02) mg/dL Est Cr Clr Drug Dosing mL/min Estimated GFR (MDRD) (>60) mL/min BUN/Creatinine Ratio (14-18) Glucose (83-115) mg/dL Lactic Acid 0.8 (0.4-2.0) mmol/L Calcium (8.5-10.1) mg/dL Total Bilirubin (0.2-1.0) mg/dL AST (15-37) U/L ALT (14-59) U/L Alkaline Phosphatase (46-116) U/L Troponin I (0.00-0.056) ng/mL C-Reactive Protein (<1.0) mg/dL NT-Pro-B Natriuret Pep 533 H (0-450) pg/mL Total Protein (6.4-8.2) g/dl Albumin (3.4-5.0) g/dl Globulin gm/dL Albumin/Globulin Ratio (1-2) Urine Color (Yellow) Urine Appearance (Clear) Urine pH (5.0-8.0) Ur Specific [place] (1.005-1.030) Urine Protein (Negative) Urine Glucose (UA) (Negative) Urine Ketones (Negative) Urine Occult Blood (Negative) Urine Nitrite (Negative) Urine Bilirubin (Negative) Urine Urobilinogen (0.2-1.0) Ur Leukocyte Esterase (Negative) Urine RBC (0-5) /hpf Urine WBC (0-5) /hpf Urine WBC Clumps (NOT SEEN) /hpf Ur Epithelial Cells (0-5) /hpf Urine Bacteria (FEW) /hpf Urine Mucus (FEW) /hpf Result Diagrams: 03/04/18 05:40 03/04/18 05:40 Orders Last 24hrs: Active Orders 24 hr Category Date Time Status Patient Status [ADT] Routine ADT 03/04/18 03:28 Active Activity as Tolerated [RC] .Routine Care 03/04/18 04:57 Active Bedrest [RC] ASDIRECTED Care 03/04/18 04:47 Active Notify Provider Consults [RC] ASDIRECTED Care 03/04/18 10:06 Active Consult to Case Management [CONS] Routine Cons 03/04/18 04:46 Active Consult to Physician [CONS] Routine Cons 03/04/18 10:05 Active OT Evaluation and Treatment [CONS] Routine Cons 03/04/18 04:46 Active PT Evaluation and Treatment [CONS] Routine Cons 03/04/18 04:45 Active Clear Liquid Diet [DIET] Diet 03/04/18 Breakfast Active ALPRAZolam [Xanax] Med 03/04/18 13:36 Active 0.5 mg PO TID PRN Acetaminophen [Tylenol] Med 03/04/18 04:43 Active 650 mg PO Q6H PRN Albuterol [Proventil HFA] Med 03/04/18 13:36 Active 0 gm INH DAILY PRN Aspirin [Ecotrin] Med 03/04/18 21:00 Active 325 mg PO BID Carvedilol [Coreg] Med 03/04/18 21:00 Active 6.25 mg PO BID Citalopram [Celexa] Med 03/05/18 09:00 Active 10 mg PO DAILY Famotidine [Pepcid] Med 03/04/18 09:00 Active 40 mg IVPUSH DAILY HYDROmorphone [Dilaudid] Med 03/04/18 10:37 Active 0.5 mg IVPUSH Q4H PRN Levofloxacin/Dextrose 5%-Water [Levaquin in D5W 750 MG/ Med 03/05/18 04:00 Active 150 ML] 750 mg Premix Bag 1 bag IV Q24H Levothyroxine [Synthroid] Med 03/05/18 06:00 Active 100 mcg PO ACBREAKFAST Losartan [Cozaar] Med 03/04/18 21:00 Active 50 mg PO BEDTIME Ondansetron [Zofran ODT] Med 03/04/18 13:36 Active 4 mg PO Q8H PRN Ondansetron [Zofran] Med 03/04/18 04:43 Active 4 mg IVPUSH Q8H PRN Patient's Own Medication [Ptom] Med 03/04/18 13:45 Active 0 each TOP ASDIRECTED Remove Patch Med 03/07/18 11:00 Active 1 ea TRDERM Q72H Scopolamine [Transderm-Scop] Med 03/04/18 11:17 Active 1.5 mg TRDERM Q72H PRN Sodium Chloride 0.9% [Normal Saline] 1,000 ml Med 03/04/18 03:45 Active IV ASDIRECTED amLODIPine [Norvasc] Med 03/04/18 21:00 Active 2.5 mg PO BID SCD [Sequential Compression Device] [OM.PC] Routine Oth 03/04/18 04:45 Ordered DYLAN Hose [Antiembolic Hose] [OM.PC] Routine Oth 03/04/18 14:54 Ordered Code Status [Resuscitation Status] Routine Resus Stat 03/04/18 04:46 Ordered Medication Orders Acetaminophen (Tylenol) 650 mg PO Q6H PRN PRN Reason: Pain/Fever Albuterol (Proventil Hfa) 0 gm INH DAILY PRN PRN Reason: asthma Alprazolam (Xanax) 0.5 mg PO TID PRN PRN Reason: Anxiety Last Admin: 03/04/18 14:09 Dose: 0.5 mg Amlodipine Besylate (Norvasc) 2.5 mg PO BID [facility] Aspirin (Ecotrin) 325 mg PO BID [facility] Carvedilol (Coreg) 6.25 mg PO BID [facility] Citalopram Hydrobromide (Celexa) 10 mg PO DAILY [facility] Famotidine (Pepcid) 40 mg IVPUSH DAILY [facility] Last Admin: 03/04/18 10:18 Dose: 40 mg Hydromorphone HCl (Dilaudid) 0.5 mg IVPUSH Q4H PRN PRN Reason: Pain Sodium Chloride (Normal Saline) 1,000 mls @ 100 mls/hr IV ASDIRECTED [facility] Last Admin: 03/04/18 14:05 Dose: 100 mls/hr Infusion: 03/04/18 13:42 Dose: 100 mls/hr Admin: 03/04/18 03:42 Dose: 100 mls/hr Levofloxacin/Dextrose 750 mg/ (Premix) 150 mls @ 100 mls/hr IV Q24H [facility] Levothyroxine Sodium (Synthroid) 100 mcg PO ACBREAKFAST [facility] Losartan Potassium (Cozaar) 50 mg PO BEDTIME [facility] Miscellaneous Information (Remove Patch) 1 ea TRDERM Q72H [facility] Ondansetron HCl (Zofran) 4 mg IVPUSH Q8H PRN PRN Reason: Nausea/Vomiting Last Admin: 03/04/18 05:48 Dose: 4 mg Ondansetron HCl (Zofran Odt) 4 mg PO Q8H PRN PRN Reason: Nausea Promethazine Plo (Topical Gel) 0 each TOP ASDIRECTED [facility] Scopolamine (Transderm-Scop) 1.5 mg TRDERM Q72H PRN PRN Reason: Nausea Last Admin: 03/04/18 11:30 Dose: 1.5 mg
--- NOTE | 2018-03-04 13:31 | CT ---
CT abdomen and pelvis Technique: Multiple axial sections were obtained from above the dome of the diaphragm inferiorly through the pubic symphysis. Intravenous and oral contrast was utilized. Delayed images were obtained through the bladder. Comparison: Prior abdominal x-ray performed on 03/03/18, no previous abdominal or pelvic CT exam is available. Findings: Slight atelectasis or scarring seen within the right lung base. Soft tissue abnormality is seen outside and projecting into the stomach fundus near the gastroesophageal junction measuring about 4.9 x 2.4 cm. Liver shows no focal parenchymal abnormality. Spleen appears within normal limits. Adrenal glands show no nodule. Kidneys show symmetric contrast enhancement without hydronephrosis or mass. Gallbladder contains no calcified gallstones. Pancreas appears within normal limits. Aorta and iliac vessels show atherosclerotic calcification without aneurysm. No retroperitoneal adenopathy is seen. Appendix is seen and is normal in size. 2.7 cm cyst noted within the left ovary which is felt to be incidental. No free fluid is seen. Mild bowel wall thickening is seen within portions of the transverse colon suggesting mild colitis. No other bowel abnormality is appreciated. No free fluid or inflammatory change is seen. Bone window settings were reviewed which show scattered degenerative change noted within the spine. Impression: 1. Soft tissue abnormality outside and projecting into the stomach fundus near the gastroesophageal junction. Difficult to exclude neoplasm. Endoscopy recommended to further evaluate. 2. Slightly thickened colonic wall mostly within the transverse colon which is felt compatible with a nonspecific colitis. 3. Other incidental findings. Diagnostic code #9 I agree with preliminary report issued by [employer] ([facility] report finalized on 03/04/18, 3:04 AM Central Time)
--- NOTE | 2018-03-04 13:31 | CR ---
Abdomen: Supine and upright views of the abdomen were obtained. Air-fluid level seen within the right colon which can be seen normally as well as with mild right colonic ileus. Bowel gas pattern is otherwise unremarkable. Mild scoliosis is seen. Calcifications are identified within the pelvis which are felt compatible with phleboliths. No free air is seen. Impression: 1. Air-fluid levels within the right colon which can be seen normally as well as with mild ileus. 2. Other incidental findings. Diagnostic code #2
[2018-03-04] MEDS ORDERED: Ondansetron 4 MG Tab.DIS PO PRN (13:36)
[2018-03-04] MEDS ORDERED: Albuterol 6.7 GM Inhaler INH PRN (13:36)
[2018-03-04] MEDS ORDERED: PROMETHAZINE PLO TOP SCH (13:45)
[2018-03-04] MEDS: ALPRAZolam 0.5 MG Tab PO PRN (14:09)
--- NOTE | 2018-03-04 18:18 | PCM.CONSN ---
- General Info Date of Service: 03/04/18 - Patient Data Vitals - Most Recent: Last Vital Signs Temp 98.2 F 03/04/18 15:26 Pulse 68 03/04/18 15:26 Resp 16 03/04/18 15:26 BP 129/51 L 03/04/18 15:26 Pulse Ox 94 L 03/04/18 15:26 Weight - Most Recent: 74.417 kg I&O - Last 24 Hours: Intake & Output 03/04/18 03/04/18 03/04/18 07:59 15:59 23:59 Intake Total 0 520 1281 Output Total 200 400 Balance -920 439 5570 Lab Results Last 24 Hours: Laboratory Results - last 24 hr 03/03/18 03/03/18 03/03/18 Range/Units 22:29 22:29 22:29 WBC 12.38 H (3.98-10.04) K/mm3 RBC 4.01 (3.98-5.22) M/mm3 Hgb 12.5 (11.2-15.7) gm/L Hct 35.6 (34.1-44.9) % MCV 88.8 (79.4-94.8) fl MCH 31.2 (25.6-32.2) pg MCHC 35.1 (32.2-35.5) g/dl RDW Std Deviation 37.6 (36.4-46.3) fL Plt Count 442 H (182-369) K/mm3 MPV 7.7 L (9.4-12.3) fl Neutrophils % (Manual) 72 H (40-60) % Band Neutrophils % 0 (0-10) % Lymphocytes % (Manual) 9 L (20-40) % Atypical Lymphs % 3 % Monocytes % (Manual) 12 H (2-10) % Eosinophils % (Manual) 3 (0.7-5.8) % Basophils % (Manual) 0 L (0.1-1.2) Promyelocytes % 1 Toxic Granulation 1+ slight Platelet Estimate Increased Plt Morphology Comment Normal Poikilocytosis Anisocytosis RBC Morph Comment Normal Sodium 122 L (136-145) mEq/L Potassium 4.2 (3.5-5.1) mEq/L Chloride 87 L (98-107) mEq/L Carbon Dioxide 24 (21-32) mEq/L Anion Gap 15.2 H (5-15) BUN 13 (7-18) mg/dL Creatinine 0.8 (0.55-1.02) mg/dL Est Cr Clr Drug Dosing 58.61 mL/min Estimated GFR (MDRD) > 60 (>60) mL/min BUN/Creatinine Ratio 16.3 (14-18) Glucose 127 H (83-115) mg/dL Lactic Acid (0.4-2.0) mmol/L Calcium 9.0 (8.5-10.1) mg/dL Total Bilirubin 0.9 (0.2-1.0) mg/dL AST 28 (15-37) U/L ALT 24 (14-59) U/L Alkaline Phosphatase 63 (46-116) U/L Troponin I < 0.017 (0.00-0.056) ng/mL C-Reactive Protein 1.9 H* (<1.0) mg/dL NT-Pro-B Natriuret Pep (0-450) pg/mL Total Protein 7.5 (6.4-8.2) g/dl Albumin 3.6 (3.4-5.0) g/dl Globulin 3.9 gm/dL Albumin/Globulin Ratio 0.9 L (1-2) Urine Color (Yellow) Urine Appearance (Clear) Urine pH (5.0-8.0) Ur Specific [place] (1.005-1.030) Urine Protein (Negative) Urine Glucose (UA) (Negative) Urine Ketones (Negative) Urine Occult Blood (Negative) Urine Nitrite (Negative) Urine Bilirubin (Negative) Urine Urobilinogen (0.2-1.0) Ur Leukocyte Esterase (Negative) Urine RBC (0-5) /hpf Urine WBC (0-5) /hpf Urine WBC Clumps (NOT SEEN) /hpf Ur Epithelial Cells (0-5) /hpf Urine Bacteria (FEW) /hpf Urine Mucus (FEW) /hpf 03/04/18 03/04/18 03/04/18 Range/Units 02:30 05:40 05:40 WBC 12.08 H (3.98-10.04) K/mm3 RBC 3.61 L (3.98-5.22) M/mm3 Hgb 11.0 L (11.2-15.7) gm/L Hct 32.0 L (34.1-44.9) % MCV 88.6 (79.4-94.8) fl MCH 30.5 (25.6-32.2) pg MCHC 34.4 (32.2-35.5) g/dl RDW Std Deviation 37.7 (36.4-46.3) fL Plt Count 426 H (182-369) K/mm3 MPV 7.9 L (9.4-12.3) fl Neutrophils % (Manual) 77 H (40-60) % Band Neutrophils % 1 (0-10) % Lymphocytes % (Manual) 18 L (20-40) % Atypical Lymphs % 0 % Monocytes % (Manual) 1 L (2-10) % Eosinophils % (Manual) 2 (0.7-5.8) % Basophils % (Manual) 1 (0.1-1.2) Promyelocytes % Toxic Granulation Platelet Estimate Adequate Plt Morphology Comment Poikilocytosis 1+ slight Anisocytosis 1+ slight RBC Morph Comment 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 systems officer Sodium 121 L (136-145) mEq/L Potassium 3.9 (3.5-5.1) mEq/L Chloride 89 L (98-107) mEq/L Carbon Dioxide 23 (21-32) mEq/L Anion Gap 12.9 (5-15) BUN 10 (7-18) mg/dL Creatinine 0.7 (0.55-1.02) mg/dL Est Cr Clr Drug Dosing 66.99 mL/min Estimated GFR (MDRD) > 60 (>60) mL/min BUN/Creatinine Ratio 14.3 (14-18) Glucose 129 H (83-115) mg/dL Lactic Acid (0.4-2.0) mmol/L Calcium 7.8 L (8.5-10.1) mg/dL Total Bilirubin (0.2-1.0) mg/dL AST (15-37) U/L ALT (14-59) U/L Alkaline Phosphatase (46-116) U/L Troponin I (0.00-0.056) ng/mL C-Reactive Protein 1.6 H* (<1.0) mg/dL NT-Pro-B Natriuret Pep (0-450) pg/mL Total Protein (6.4-8.2) g/dl Albumin (3.4-5.0) g/dl Globulin gm/dL Albumin/Globulin Ratio (1-2) Urine Color Yellow (Yellow) Urine Appearance Clear (Clear) Urine pH 6.0 (5.0-8.0) Ur Specific [place] 1.015 (1.005-1.030) Urine Protein Negative (Negative) Urine Glucose (UA) Negative (Negative) Urine Ketones Negative (Negative) Urine Occult Blood Trace-intact H (Negative) Urine Nitrite Negative (Negative) Urine Bilirubin Negative (Negative) Urine Urobilinogen 2.0 H (0.2-1.0) Ur Leukocyte Esterase Negative (Negative) Urine RBC 0-5 (0-5) /hpf Urine WBC 0-5 (0-5) /hpf Urine WBC Clumps Few (NOT SEEN) /hpf Ur Epithelial Cells 0-5 (0-5) /hpf Urine Bacteria Rare (FEW) /hpf Urine Mucus Not seen (FEW) /hpf 03/04/18 03/04/18 Range/Units 05:40 05:40 WBC (3.98-10.04) K/mm3 RBC (3.98-5.22) M/mm3 Hgb (11.2-15.7) gm/L Hct (34.1-44.9) % MCV (79.4-94.8) fl MCH (25.6-32.2) pg MCHC (32.2-35.5) g/dl RDW Std Deviation (36.4-46.3) fL Plt Count (182-369) K/mm3 MPV (9.4-12.3) fl Neutrophils % (Manual) (40-60) % Band Neutrophils % (0-10) % Lymphocytes % (Manual) (20-40) % Atypical Lymphs % % Monocytes % (Manual) (2-10) % Eosinophils % (Manual) (0.7-5.8) % Basophils % (Manual) (0.1-1.2) Promyelocytes % Toxic Granulation Platelet Estimate Plt Morphology Comment Poikilocytosis Anisocytosis RBC Morph Comment Sodium (136-145) mEq/L Potassium (3.5-5.1) mEq/L Chloride (98-107) mEq/L Carbon Dioxide (21-32) mEq/L Anion Gap (5-15) BUN (7-18) mg/dL Creatinine (0.55-1.02) mg/dL Est Cr Clr Drug Dosing mL/min Estimated GFR (MDRD) (>60) mL/min BUN/Creatinine Ratio (14-18) Glucose (83-115) mg/dL Lactic Acid 0.8 (0.4-2.0) mmol/L Calcium (8.5-10.1) mg/dL Total Bilirubin (0.2-1.0) mg/dL AST (15-37) U/L ALT (14-59) U/L Alkaline Phosphatase (46-116) U/L Troponin I (0.00-0.056) ng/mL C-Reactive Protein (<1.0) mg/dL NT-Pro-B Natriuret Pep 533 H (0-450) pg/mL Total Protein (6.4-8.2) g/dl Albumin (3.4-5.0) g/dl Globulin gm/dL Albumin/Globulin Ratio (1-2) Urine Color (Yellow) Urine Appearance (Clear) Urine pH (5.0-8.0) Ur Specific [place] (1.005-1.030) Urine Protein (Negative) Urine Glucose (UA) (Negative) Urine Ketones (Negative) Urine Occult Blood (Negative) Urine Nitrite (Negative) Urine Bilirubin (Negative) Urine Urobilinogen (0.2-1.0) Ur Leukocyte Esterase (Negative) Urine RBC (0-5) /hpf Urine WBC (0-5) /hpf Urine WBC Clumps (NOT SEEN) /hpf Ur Epithelial Cells (0-5) /hpf Urine Bacteria (FEW) /hpf Urine Mucus (FEW) /hpf Med Orders - Current: Current Medications Acetaminophen (Tylenol) 650 mg PO Q6H PRN PRN Reason: Pain/Fever Albuterol (Proventil Hfa) 0 gm INH DAILY PRN PRN Reason: asthma Alprazolam (Xanax) 0.5 mg PO TID PRN PRN Reason: Anxiety Last Admin: 03/04/18 14:09 Dose: 0.5 mg Amlodipine Besylate (Norvasc) 2.5 mg PO BID [facility] Aspirin (Ecotrin) 325 mg PO BID [facility] Carvedilol (Coreg) 6.25 mg PO BID [facility] Citalopram Hydrobromide (Celexa) 10 mg PO DAILY [facility] Famotidine (Pepcid) 40 mg IVPUSH DAILY [facility] Last Admin: 03/04/18 10:18 Dose: 40 mg Hydromorphone HCl (Dilaudid) 0.5 mg IVPUSH Q4H PRN PRN Reason: Pain Sodium Chloride (Normal Saline) 1,000 mls @ 100 mls/hr IV ASDIRECTED [facility] Last Admin: 03/04/18 14:05 Dose: 100 mls/hr Levofloxacin/Dextrose 750 mg/ (Premix) 150 mls @ 100 mls/hr IV Q24H [facility] Levothyroxine Sodium (Synthroid) 100 mcg PO ACBREAKFAST [facility] Losartan Potassium (Cozaar) 50 mg PO BEDTIME [facility] Miscellaneous Information (Remove Patch) 1 ea TRDERM Q72H [facility] Ondansetron HCl (Zofran) 4 mg IVPUSH Q8H PRN PRN Reason: Nausea/Vomiting Last Admin: 03/04/18 17:42 Dose: 4 mg Ondansetron HCl (Zofran Odt) 4 mg PO Q8H PRN PRN Reason: Nausea Promethazine Plo (Topical Gel) 0 each TOP ASDIRECTED [facility] Scopolamine (Transderm-Scop) 1.5 mg TRDERM Q72H PRN PRN Reason: Nausea Last Admin: 03/04/18 11:30 Dose: 1.5 mg Discontinued Medications Hydromorphone HCl (Dilaudid) 0.5 mg IVPUSH Q4H PRN PRN Reason: Pain Sodium Chloride (Normal Saline) 1,000 mls @ 250 mls/hr IV ASDIRECTED [facility] Last Admin: 03/03/18 22:29 Dose: 250 mls/hr Levofloxacin/Dextrose 750 mg/ (Premix) 150 mls @ 100 mls/hr IV ONETIME ONE Stop: 03/04/18 05:02 Last Admin: 03/04/18 03:42 Dose: 100 mls/hr Magnesium Sulfate 2 gm/ Premix 50 mls @ 25 mls/hr IV ONETIME ONE Stop: 03/04/18 06:40 Last Admin: 03/04/18 05:43 Dose: 25 mls/hr Labetalol HCl (Normodyne) 10 mg IVPUSH ONETIME ONE; Protocol Stop: 03/03/18 22:57 Last Admin: 03/03/18 23:03 Dose: 10 mg Labetalol HCl (Normodyne) 10 mg IVPUSH ONETIME ONE; Protocol Stop: 03/04/18 00:15 Last Admin: 03/04/18 00:39 Dose: 10 mg Ondansetron HCl (Zofran) 4 mg IVPUSH ONETIME ONE Stop: 03/03/18 22:16 Last Admin: 03/03/18 22:29 Dose: 4 mg Consult PN Assessment/Plan Procedures: Procedures ASSAY OF TROPONIN QUANT (06/24/16) CHEST X-RAY 1 VIEW FRONTAL (06/24/16) COMPLETE CBC W/AUTO DIFF WBC (02/22/18) COMPREHEN METABOLIC PANEL (06/24/16) DXA BONE DENSITY AXIAL (07/07/17) ELECTROCARDIOGRAM TRACING (06/24/16) EMERGENCY DEPT VISIT (06/24/16) EMERGENCY DEPT VISIT (06/19/16) GAIT TRAINING THERAPY (02/22/18) MR-STAPH DNA AMP PROBE (02/22/18) MRI JOINT UPR EXTREM W/O DYE (05/25/14) N BLOCK INJ FEM SINGLE (02/22/18) OT EVAL LOW COMPLEX 30 MIN (02/22/18) PT EVAL LOW COMPLEX 20 MIN (02/22/18) ROUTINE VENIPUNCTURE (02/22/18) SELF CARE MNGMENT TRAINING (02/22/18) THERAPEUTIC EXERCISES (02/22/18) TISSUE EXAM BY PATHOLOGIST (12/27/14) TOTAL KNEE ARTHROPLASTY (02/22/18) URINE CULTURE/COLONY COUNT (09/12/17) X-RAY EXAM OF KNEE 1 OR 2 (02/22/18) Problem List Initiated/Reviewed/Updated: Yes Plan: surgical consult dictated MARCO
[2018-03-04] MEDS: Aspirin 325 MG Tab.EC PO SCH (21:08)
[2018-03-04] MEDS: amLODIPine 2.5 MG Tab PO SCH (21:08)
[2018-03-04] MEDS: Carvedilol 6.25 MG Tab PO SCH (21:08)
[2018-03-04] MEDS: Losartan 25 MG Tab PO SCH (21:09)
[2018-03-05] MEDS: Sodium Chloride 0.9% 1,000 ML IV SCH ×3 (00:13→21:51)
[2018-03-05] MEDS: Levofloxacin/Dextrose 5%-Water 750 MG in Premix Bag 1 BAG IV SCH (04:45)
[2018-03-05] MEDS: Levothyroxine 100 MCG Tab PO SCH (05:02)
--- NOTE | 2018-03-05 06:44 | CONS ---
CONSULTING PHYSICIAN: Luis Landry MD DATE OF CONSULTATION: 03/04/2018 HISTORY OF PRESENT ILLNESS: This 82-year-old female was brought into the hospital yesterday complaining of some mostly nausea and crampy abdominal pain. She had underwent a total knee on 02/22 and had some Percocet. She stopped taking the Percocet and relied on Tylenol. Her bowel functions were somewhat sluggish. A CT scan was then done because of the crampy abdominal pain demonstrating a mass effect in the upper stomach. The report describes a soft tissue abnormality outside and projecting into the stomach fundus near the GE junction, difficulty excluding neoplasia. 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 She has also had a colonoscopy in 2014 showing some hyperplastic polyps. The CT scan did mention she had a thickened colon wall mostly in the transverse colon, which was considered nonspecific. The patient since being in the hospital has improved. The cramps have gone away when she had a bowel movement from the CT scan, she does have some gas. REVIEW OF SYSTEMS: Does have nausea, but denies any dysphagia, any early satiety. Denies any bleeding, any hematemesis, or hematochezia. PAST MEDICAL HISTORY: That of hypertension, history of asthma, hypothyroidism treated, anxiety. REVIEW OF SYSTEMS: As stated above. MEDICATIONS: As per medication reconciliation form and has been reviewed. PHYSICAL EXAMINATION: GENERAL: Reveals an alert, cooperative female in no acute distress at this time. VITAL SIGNS: With a temperature of 98, pulse 67, respirations 18, blood pressure 139/62. EYES: Sclerae white. Extraocular muscle motion normal. ORAL CAVITY: Healthy mucous membrane with mouth and tongue. NECK: Supple. No nodes. No thyromegaly. Trachea midline. LUNGS: Clear. No rales, rhonchi, fremitus, or dullness. HEART: Heart tones regular rate. No S3, S4, jugular venous distention, or murmurs. ABDOMEN: Shows gas, distention, but no abdominal tenderness, guarding, or rebound. No ventral or inguinal hernias noted. EXTREMITIES: Upper and lower extremities, no angulation deformities. Surgical site noted in the right knee from recent knee replacement. NEUROLOGIC: Cranial nerves III through XII intact. No sensorineural deficits. PSYCHIATRIC: Normal. ASSESSMENT: Abnormal CT scan showing external mass at the GE junction and fundus of the stomach. PLAN: For upper GI endoscopy. Discussed this with the patient, risks and complications. She understands and consents. DONNA /[id number]
--- NOTE | 2018-03-05 07:28 | PCM.PREANE ---
Preanesthetic Assessment - Procedure Proposed Procedure: egd - Anesthesia/Transfusion/Family Hx Anesthesia History: Prior Anesthesia Without Reaction Family History of Anesthesia Reaction: No Transfusion History: No Prior Transfusion(s) - Review of Systems General: No Symptoms Pulmonary: No Symptoms Cardiovascular: No Symptoms Gastrointestinal: Abdominal Pain (better), Nausea (still a little nausea) Neurological: No Symptoms Other: Reports: Thyroid Problems, Depression, Anxiety - Physical Assessment NPO Status Date: 03/05/18 NPO Status Time: 00:00 Pulse: 59 O2 Sat by Pulse Oximetry: 97 Respiratory Rate: 16 Blood Pressure: 145/62 Temperature: 97.7 F Vital Signs: Last Vital Signs Temp 97.7 F 03/05/18 04:44 Pulse 59 L 03/05/18 04:44 Resp 16 03/05/18 04:44 BP 145/62 H 03/05/18 04:44 Pulse Ox 97 03/05/18 04:44 Height: 5 ft 9 in Weight: 74.843 kg ASA Class: 3 Mental Status: Alert & Oriented x3 Airway Class: Mallampati = 1 Dentition: Reports: Dentures (upper) Thyro-Mental Finger Breadths: 3 Mouth Opening Finger Breadths: 3 ROM/Head Extension: Full Lungs: Clear to Auscultation, Normal Respiratory Effort Cardiovascular: Regular Rate, Regular Rhythm - Lab Values: Laboratory Last Values WBC 12.08 K/mm3 (3.98-10.04) H 03/04/18 05:40 RBC 3.61 M/mm3 (3.98-5.22) L 03/04/18 05:40 Hgb 11.0 gm/L (11.2-15.7) L 03/04/18 05:40 Hct 32.0 % (34.1-44.9) L 03/04/18 05:40 MCV 88.6 fl (79.4-94.8) 03/04/18 05:40 MCH 30.5 pg (25.6-32.2) 03/04/18 05:40 MCHC 34.4 g/dl (32.2-35.5) 03/04/18 05:40 RDW Std Deviation 37.7 fL (36.4-46.3) 03/04/18 05:40 Plt Count 426 K/mm3 (182-369) H 03/04/18 05:40 MPV 7.9 fl (9.4-12.3) L 03/04/18 05:40 Neutrophils % (Manual) 77 % (40-60) H 03/04/18 05:40 Band Neutrophils % 1 % (0-10) 03/04/18 05:40 Lymphocytes % (Manual) 18 % (20-40) L 03/04/18 05:40 Atypical Lymphs % 0 % 03/04/18 05:40 Monocytes % (Manual) 1 % (2-10) L 03/04/18 05:40 Eosinophils % (Manual) 2 % (0.7-5.8) 03/04/18 05:40 Basophils % (Manual) 1 (0.1-1.2) 03/04/18 05:40 Promyelocytes % 1 03/03/18 22:29 Toxic Granulation 1+ slight 03/03/18 22:29 Platelet Estimate Adequate 03/04/18 05:40 Plt Morphology Comment Normal 03/03/18 22:29 Poikilocytosis 1+ slight 03/04/18 05:40 Anisocytosis 1+ slight 03/04/18 05:40 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 03/04/18 05:40 Sodium 121 mEq/L (136-145) L 03/04/18 05:40 Potassium 3.9 mEq/L (3.5-5.1) 03/04/18 05:40 Chloride 89 mEq/L (98-107) L 03/04/18 05:40 Carbon Dioxide 23 mEq/L (21-32) 03/04/18 05:40 Anion Gap 12.9 (5-15) 03/04/18 05:40 BUN 10 mg/dL (7-18) 03/04/18 05:40 Creatinine 0.7 mg/dL (0.55-1.02) 03/04/18 05:40 Est Cr Clr Drug Dosing 66.99 mL/min 03/04/18 05:40 Estimated GFR (MDRD) > 60 mL/min (>60) 03/04/18 05:40 BUN/Creatinine Ratio 14.3 (14-18) 03/04/18 05:40 Glucose 129 mg/dL (83-115) H 03/04/18 05:40 Lactic Acid 0.8 mmol/L (0.4-2.0) 03/04/18 05:40 Calcium 7.8 mg/dL (8.5-10.1) L 03/04/18 05:40 Total Bilirubin 0.9 mg/dL (0.2-1.0) 03/03/18 22:29 AST 28 U/L (15-37) 03/03/18 22:29 ALT 24 U/L (14-59) 03/03/18 22:29 Alkaline Phosphatase 63 U/L (46-116) 03/03/18 22:29 Troponin I < 0.017 ng/mL (0.00-0.056) 03/03/18 22:29 C-Reactive Protein 1.6 mg/dL (<1.0) H* 03/04/18 05:40 NT-Pro-B Natriuret Pep 533 pg/mL (0-450) H 03/04/18 05:40 Total Protein 7.5 g/dl (6.4-8.2) 03/03/18 22:29 Albumin 3.6 g/dl (3.4-5.0) 03/03/18 22:29 Globulin 3.9 gm/dL 03/03/18 22:29 Albumin/Globulin Ratio 0.9 (1-2) L 03/03/18 22:29 Urine Color Yellow (Yellow) 03/04/18 02:30 Urine Appearance Clear (Clear) 03/04/18 02:30 Urine pH 6.0 (5.0-8.0) 03/04/18 02:30 Ur Specific [place] 1.015 (1.005-1.030) 03/04/18 02:30 Urine Protein Negative (Negative) 03/04/18 02:30 Urine Glucose (UA) Negative (Negative) 03/04/18 02:30 Urine Ketones Negative (Negative) 03/04/18 02:30 Urine Occult Blood Trace-intact (Negative) H 03/04/18 02:30 Urine Nitrite Negative (Negative) 03/04/18 02:30 Urine Bilirubin Negative (Negative) 03/04/18 02:30 Urine Urobilinogen 2.0 (0.2-1.0) H 03/04/18 02:30 Ur Leukocyte Esterase Negative (Negative) 03/04/18 02:30 Urine RBC 0-5 /hpf (0-5) 03/04/18 02:30 Urine WBC 0-5 /hpf (0-5) 03/04/18 02:30 Urine WBC Clumps Few /hpf (NOT SEEN) 03/04/18 02:30 Ur Epithelial Cells 0-5 /hpf (0-5) 03/04/18 02:30 Urine Bacteria Rare /hpf (FEW) 03/04/18 02:30 Urine Mucus Not seen /hpf (FEW) 03/04/18 02:30 - Allergies Allergies/Adverse Reactions: Allergies Allergy/AdvReac Type Severity Reaction Status Date / Time animal dander Allergy Cannot Verified 02/19/18 13:12 Remember seasonal Allergy Cannot Uncoded 02/19/18 13:12 Remember - Blood Blood Available: No - Anesthesia Plan Beta Amari: Carvedilol Med Last Dose Date: 03/04/18 Med Last Dose Time: 21:00 (due at 0900) - Acknowledgements Anesthesia Type Planned: MAC Pt an Appropriate Candidate for the Planned Anesthesia: Yes Alternatives and Risks of Anesthesia Discussed w Pt/Guardian: Yes Pt/Guardian Understands and Agrees with Anesthesia Plan: Yes PreAnesthesia Questionnaire HEENT History: Reports: Impaired Vision, Other (See Below) Other HEENT History: wears glasses, has upper denture Cardiovascular History: Reports: High Cholesterol, Hypertension Respiratory History: Reports: Asthma Gastrointestinal History: Reports: Other (See Below) Other Gastrointestinal History: Colonoscopy in 2014 notable for hyperplastic polyps, tubular adenoma, and sessile serrated adenoma. 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 Genitourinary History: Reports: None Other Genitourinary History: kidney disease [employer] History: Reports: (4 children; tubal ligation) Musculoskeletal History: Reports: Osteoarthritis Neurological History: Reports: None Psychiatric History: Reports: Anxiety Endocrine/Metabolic History: Reports: Hypothyroidism Hematologic History: Reports: None Immunologic History: Reports: None Oncologic (Cancer) History: Reports: None Dermatologic History: Reports: None - Past Surgical History Head Surgeries/Procedures: Reports: None HEENT Surgical History: Reports: Tonsillectomy Cardiovascular Surgical History: Reports: None GI Surgical History: Reports: Colonoscopy, EGD Female Surgical History: Reports: Tubal Ligation Endocrine Surgical History: Reports: None Neurological Surgical History: Reports: None Musculoskeletal Surgical History: Reports: None, Knee Replacement Oncologic Surgical History: Reports: None - SUBSTANCE USE Smoking Status *Q: Former Smoker (1 pack per day for 18 years) Tobacco Use Within Last Twelve Months: No Second Hand Smoke Exposure: No Days Per Week of Alcohol Use: 0 Recreational Drug Use History: No - HOME MEDS Home Medications: Home Meds ALPRAZolam [Xanax] 0.5 mg PO TID PRN 06/19/16 [History] Albuterol Sulfate [Proventil Hfa] 2 puff INH DAILY PRN 06/19/16 [History] Levothyroxine [Synthroid] 100 mcg PO DAILY 06/19/16 [History] Carvedilol 6.25 mg PO BID 02/19/18 [History] Escitalopram Oxalate [Lexapro] 5 mg PO DAILY 02/19/18 [History] Losartan [Cozaar] 50 mg PO BEDTIME 02/19/18 [History] Multivitamin [Daily Multiple Vitamin] 1 tab PO DAILY 02/19/18 [History] amLODIPine [Norvasc] 2.5 mg PO BID 02/19/18 [History] Aspirin [Ecotrin] 325 mg PO BID tab.ec 02/23/18 [Rx] oxyCODONE HCl/Acetaminophen [Percocet 5-325 mg Tablet] 1 - 2 tab PO Q6H PRN #60 tablet 02/23/18 [Rx] Ondansetron HCl [Zofran] 4 mg PO Q8H PRN 03/03/18 [History] Promethazine [Phenergan] 1 applic TOP ASDIRECTED 03/03/18 [History] - CURRENT (IN HOUSE) MEDS Current Meds: Current Medications Acetaminophen (Tylenol) 650 mg PO Q6H PRN PRN Reason: Pain/Fever Albuterol (Proventil Hfa) 0 gm INH DAILY PRN PRN Reason: asthma Alprazolam (Xanax) 0.5 mg PO TID PRN PRN Reason: Anxiety Last Admin: 03/04/18 14:09 Dose: 0.5 mg Amlodipine Besylate (Norvasc) 2.5 mg PO BID [facility] Last Admin: 03/04/18 21:08 Dose: 2.5 mg Aspirin (Ecotrin) 325 mg PO BID [facility] Last Admin: 03/04/18 21:08 Dose: 325 mg Carvedilol (Coreg) 6.25 mg PO BID [facility] Last Admin: 03/04/18 21:08 Dose: 6.25 mg Citalopram Hydrobromide (Celexa) 10 mg PO DAILY [facility] Famotidine (Pepcid) 40 mg IVPUSH DAILY [facility] Last Admin: 03/04/18 10:18 Dose: 40 mg Hydromorphone HCl (Dilaudid) 0.5 mg IVPUSH Q4H PRN PRN Reason: Pain Sodium Chloride (Normal Saline) 1,000 mls @ 100 mls/hr IV ASDIRECTED [facility] Last Admin: 03/05/18 00:13 Dose: 100 mls/hr Levofloxacin/Dextrose 750 mg/ (Premix) 150 mls @ 100 mls/hr IV Q24H [facility] Last Admin: 03/05/18 04:45 Dose: 100 mls/hr Levothyroxine Sodium (Synthroid) 100 mcg PO ACBREAKFAST [facility] Last Admin: 03/05/18 05:02 Dose: Not Given Losartan Potassium (Cozaar) 50 mg PO BEDTIME [facility] Last Admin: 03/04/18 21:09 Dose: 50 mg Miscellaneous Information (Remove Patch) 1 ea TRDERM Q72H [facility] Ondansetron HCl (Zofran) 4 mg IVPUSH Q8H PRN PRN Reason: Nausea/Vomiting Last Admin: 03/04/18 17:42 Dose: 4 mg Ondansetron HCl (Zofran Odt) 4 mg PO Q8H PRN PRN Reason: Nausea Promethazine Plo (Topical Gel) 0 each TOP ASDIRECTED [facility] Scopolamine (Transderm-Scop) 1.5 mg TRDERM Q72H PRN PRN Reason: Nausea Last Admin: 03/04/18 11:30 Dose: 1.5 mg Discontinued Medications Hydromorphone HCl (Dilaudid) 0.5 mg IVPUSH Q4H PRN PRN Reason: Pain Sodium Chloride (Normal Saline) 1,000 mls @ 250 mls/hr IV ASDIRECTED [facility] Last Admin: 03/03/18 22:29 Dose: 250 mls/hr Levofloxacin/Dextrose 750 mg/ (Premix) 150 mls @ 100 mls/hr IV ONETIME ONE Stop: 03/04/18 05:02 Last Admin: 03/04/18 03:42 Dose: 100 mls/hr Magnesium Sulfate 2 gm/ Premix 50 mls @ 25 mls/hr IV ONETIME ONE Stop: 03/04/18 06:40 Last Admin: 03/04/18 05:43 Dose: 25 mls/hr Labetalol HCl (Normodyne) 10 mg IVPUSH ONETIME ONE; Protocol Stop: 03/03/18 22:57 Last Admin: 03/03/18 23:03 Dose: 10 mg Labetalol HCl (Normodyne) 10 mg IVPUSH ONETIME ONE; Protocol Stop: 03/04/18 00:15 Last Admin: 03/04/18 00:39 Dose: 10 mg Ondansetron HCl (Zofran) 4 mg IVPUSH ONETIME ONE Stop: 03/03/18 22:16 Last Admin: 03/03/18 22:29 Dose: 4 mg
[2018-03-05] MEDS ORDERED: fentaNYL 100 MCG/2 ML SDV ONE (07:38)
[2018-03-05] MEDS ORDERED: Lidocaine 1% 4 ML ONE (07:38)
[2018-03-05] MEDS ORDERED: Propofol 200 MG/20 ML SDV ONE (07:38)
[2018-03-05] MEDS ORDERED: Lactated Ringers 1,000 ML ONE (08:07)
[2018-03-05] MEDS ORDERED: Ondansetron 4 MG/2 ML SDV ONE (08:14)
--- NOTE | 2018-03-05 08:25 | PCM.OPNOTE ---
- General Post-Op/Procedure Note Date of Surgery/Procedure: 03/05/18 Operative Procedure(s): EGD with bx Pre Op Diagnosis: abnormal CT shwing external mass at the GE jct Post-Op Diagnosis: Same Anesthesia Technique: MAC Primary Surgeon: Luis Landry EBL in mLs: 0 Complications: None Condition: Good Free Text/Narrative:: Intake & Output 03/04/18 03/05/18 03/05/18 23:59 07:59 15:59 Intake Total 1761 1843 Output Total 675 Balance 1761 1168
--- NOTE | 2018-03-05 08:33 | PCM48HPAN ---
Post Anesthesia Note - EVALUATION WITHIN 48HRS OF ANESTHETIC Vital Signs in Normal Range: Yes Patient Participated in Evaluation: Yes Respiratory Function Stable: Yes Airway Patent: Yes Cardiovascular Function Stable: Yes Hydration Status Stable: Yes Pain Control Satisfactory: Yes Nausea and Vomiting Control Satisfactory: Yes Mental Status Recovered: Yes Pulse Rate: 67 SaO2: 96 Resp Rate: 16 Temperature: 97.7 F Blood Pressure: 112/88 - COMMENTS/OBSERVATIONS Free Text/Narrative:: family in room with her. No complaints
[2018-03-05] MEDS: amLODIPine 2.5 MG Tab PO SCH ×2 (09:06→21:52)
[2018-03-05] MEDS: Famotidine 20 MG/2 ML SDV IVPUSH SCH (09:06)
[2018-03-05] MEDS: Citalopram 10 MG Tab PO SCH (09:06)
[2018-03-05] MEDS: Carvedilol 6.25 MG Tab PO SCH ×2 (09:06→21:53)
[2018-03-05] MEDS: Aspirin 325 MG Tab.EC PO SCH ×2 (09:06→21:52)
[2018-03-05] MEDS: Sodium Chloride/Potassium Chloride Tab PO SCH ×2 (11:20→21:52)
--- NOTE | 2018-03-05 12:19 | PCM.PN ---
<Jonas Umana - Last Filed: 03/05/18 13:38> - General Info Date of Service: 03/05/18 Admission Dx/Problem (Free Text): Admission Diagnosis/Problem Admission Diagnosis/Problem Colitis Subjective Update: In to see Lashell. We went over what Dr. Landry said about her EGD and her plan. We also discussed her current electrolyte imbalances and what we are doing to change this. She voiced understanding. She is hopeful for discharge tomorrow although she understands it may be Thursday based on what her labs say. Her diet is advancing. She has no current nausea. She has no complaints or concerns. No nursing concerns. She reports her appetite is increasing. Functional Status: Reports: Pain Controlled, Tolerating Diet, Ambulating, Urinating. Denies: New Symptoms - Review of Systems General: Reports: No Symptoms. Denies: Fever, Weakness, Fatigue, Malaise HEENT: Reports: No Symptoms. Denies: Eye Pain, Sinus Congestion, Sore Throat Pulmonary: Reports: No Symptoms. Denies: Shortness of Breath, Cough, Sputum, Wheezing Cardiovascular: Reports: No Symptoms. Denies: Chest Pain, Palpitations, Dyspnea on Exertion, Orthopnea, Edema Gastrointestinal: Reports: Decreased Appetite (improving). Denies: Abdominal Pain, Constipation, Diarrhea, Nausea, Vomiting Genitourinary: Reports: No Symptoms. Denies: Dysuria, Frequency, Burning, Pain Musculoskeletal: Reports: No Symptoms Skin: Reports: No Symptoms Neurological: Reports: No Symptoms, Difficulty Walking (S/P TKA ), Gait Disturbance (s/p TKA ). Denies: Weakness Psychiatric: Reports: No Symptoms - Patient Data Vitals - Most Recent: Last Vital Signs Temp 98.1 F 03/05/18 08:46 Pulse 61 03/05/18 08:46 Resp 16 03/05/18 08:46 BP 136/63 03/05/18 08:46 Pulse Ox 96 03/05/18 08:46 Weight - Most Recent: 74.843 kg I&O - Last 24 Hours: Intake & Output 03/04/18 03/05/18 03/05/18 22:59 06:59 14:59 Intake Total 2161 1843 Output Total 400 675 Balance 1761 1168 Lab Results Last 24 Hours: Laboratory Results - last 24 hr 08/17/18 08/17/18 Range/Units 10:45 10:45 WBC 8.04 (3.98-10.04) K/mm3 RBC 3.47 L (3.98-5.22) M/mm3 Hgb 10.7 L (11.2-15.7) gm/L Hct 31.9 L (34.1-44.9) % MCV 91.9 (79.4-94.8) fl MCH 30.8 (25.6-32.2) pg MCHC 33.5 (32.2-35.5) g/dl RDW Std Deviation 40.1 (36.4-46.3) fL Plt Count 394 H (182-369) K/mm3 MPV 7.7 L (9.4-12.3) fl Neut % (Auto) 68.9 (34.0-71.1) % Lymph % (Auto) 14.9 L (19.3-51.7) % [place] % (Auto) 10.6 (4.7-12.5) % Eos % (Auto) 3.0 (0.7-5.8) Baso % (Auto) 0.5 (0.1-1.2) % Neut # (Auto) 5.54 (1.56-6.13) K/mm3 Lymph # (Auto) 1.20 (1.18-3.74) K/mm3 [place] # (Auto) 0.85 H (0.24-0.36) K/mm3 Eos # (Auto) 0.24 (0.04-0.36) K/mm3 Baso # (Auto) 0.04 (0.01-0.08) K/mm3 Manual Slide Review Not Reportable Sodium 131 L (136-145) mEq/L Potassium 3.9 (3.5-5.1) mEq/L Chloride 98 (98-107) mEq/L Carbon Dioxide 25 (21-32) mEq/L Anion Gap 11.9 (5-15) BUN 7 (7-18) mg/dL Creatinine 0.8 (0.55-1.02) mg/dL Est Cr Clr Drug Dosing 58.61 mL/min Estimated GFR (MDRD) > 60 (>60) mL/min BUN/Creatinine Ratio 8.8 L (14-18) Glucose 95 (83-115) mg/dL Calcium 7.9 L (8.5-10.1) mg/dL Magnesium 1.9 (1.8-2.4) mg/dl Med Orders - Current: Current Medications Acetaminophen (Tylenol) 650 mg PO Q6H PRN PRN Reason: Pain/Fever Albuterol (Proventil Hfa) 0 gm INH DAILY PRN PRN Reason: asthma Alprazolam (Xanax) 0.5 mg PO TID PRN PRN Reason: Anxiety Last Admin: 03/04/18 14:09 Dose: 0.5 mg Amlodipine Besylate (Norvasc) 2.5 mg PO BID [facility] Last Admin: 03/05/18 09:06 Dose: 2.5 mg Aspirin (Ecotrin) 325 mg PO BID [facility] Last Admin: 03/05/18 09:06 Dose: 325 mg Carvedilol (Coreg) 6.25 mg PO BID [facility] Last Admin: 03/05/18 09:06 Dose: 6.25 mg Citalopram Hydrobromide (Celexa) 10 mg PO DAILY [facility] Last Admin: 03/05/18 09:06 Dose: 10 mg Famotidine (Pepcid) 40 mg IVPUSH DAILY [facility] Last Admin: 03/05/18 09:06 Dose: 40 mg Hydromorphone HCl (Dilaudid) 0.5 mg IVPUSH Q4H PRN PRN Reason: Pain Sodium Chloride (Normal Saline) 1,000 mls @ 100 mls/hr IV ASDIRECTED [facility] Last Admin: 03/05/18 11:25 Dose: 100 mls/hr Levofloxacin/Dextrose 750 mg/ (Premix) 150 mls @ 100 mls/hr IV Q24H [facility] Last Admin: 03/05/18 04:45 Dose: 100 mls/hr Levothyroxine Sodium (Synthroid) 100 mcg PO ACBREAKFAST [facility] Last Admin: 03/05/18 05:02 Dose: Not Given Losartan Potassium (Cozaar) 50 mg PO BEDTIME [facility] Last Admin: 03/04/18 21:09 Dose: 50 mg Miscellaneous Information (Remove Patch) 1 ea TRDERM Q72H [facility] Ondansetron HCl (Zofran) 4 mg IVPUSH Q8H PRN PRN Reason: Nausea/Vomiting Last Admin: 03/04/18 17:42 Dose: 4 mg Ondansetron HCl (Zofran Odt) 4 mg PO Q8H PRN PRN Reason: Nausea Oral Electrolytes (Thermotabs) 2 each PO BID [facility] Stop: 03/07/18 21:01 Last Admin: 03/05/18 11:20 Dose: 2 each Promethazine Plo (Topical Gel) 0 each TOP ASDIRECTED [facility] Scopolamine (Transderm-Scop) 1.5 mg TRDERM Q72H PRN PRN Reason: Nausea Last Admin: 03/04/18 11:30 Dose: 1.5 mg Discontinued Medications Fentanyl (Sublimaze) Confirm Administered Dose 100 mcg .ROUTE .STK-MED ONE Stop: 03/05/18 07:39 Hydromorphone HCl (Dilaudid) 0.5 mg IVPUSH Q4H PRN PRN Reason: Pain Sodium Chloride (Normal Saline) 1,000 mls @ 250 mls/hr IV ASDIRECTED [facility] Last Admin: 03/03/18 22:29 Dose: 250 mls/hr Levofloxacin/Dextrose 750 mg/ (Premix) 150 mls @ 100 mls/hr IV ONETIME ONE Stop: 03/04/18 05:02 Last Admin: 03/04/18 03:42 Dose: 100 mls/hr Magnesium Sulfate 2 gm/ Premix 50 mls @ 25 mls/hr IV ONETIME ONE Stop: 03/04/18 06:40 Last Admin: 03/04/18 05:43 Dose: 25 mls/hr Lidocaine HCl (Xylocaine-Mpf 1%) Confirm Administered Dose 4 mls @ as directed .ROUTE .STK-MED ONE Stop: 03/05/18 07:39 Lactated Ringer's (Ringers, Lactated) Confirm Administered Dose 1,000 mls @ as directed .ROUTE .STK-MED ONE Stop: 03/05/18 08:08 Labetalol HCl (Normodyne) 10 mg IVPUSH ONETIME ONE; Protocol Stop: 03/03/18 22:57 Last Admin: 03/03/18 23:03 Dose: 10 mg Labetalol HCl (Normodyne) 10 mg IVPUSH ONETIME ONE; Protocol Stop: 03/04/18 00:15 Last Admin: 03/04/18 00:39 Dose: 10 mg Ondansetron HCl (Zofran) 4 mg IVPUSH ONETIME ONE Stop: 03/03/18 22:16 Last Admin: 03/03/18 22:29 Dose: 4 mg Ondansetron HCl (Zofran) Confirm Administered Dose 4 mg .ROUTE .STK-MED ONE Stop: 03/05/18 08:15 Propofol (Diprivan 20 Ml) Confirm Administered Dose 200 mg .ROUTE .STK-MED ONE Stop: 03/05/18 07:39 - Exam Quality Assessment: DVT Prophylaxis General: Alert, Oriented, Cooperative, No Acute Distress HEENT: Pupils Equal, Pupils Reactive, EOMI, Mucous Membr. Moist/[place] Neck: Supple, Trachea Midline Lungs: Clear to Auscultation, Normal Respiratory Effort Cardiovascular: Regular Rate, Regular Rhythm GI/Abdominal Exam: Normal Bowel Sounds, Soft, Non-Tender, No Distention, No Abnormal Bruit (Female) Exam: Deferred Back Exam: Normal Inspection, Full Range of Motion Extremities: Normal Inspection, Normal Range of Motion, Non-Tender, No Pedal Edema, Normal Capillary Refill Peripheral Pulses: 2+: Radial (L), Radial (R), Posterior Tibial (L), Posterior Tibial (R), Dorsalis Pedis (L), Dorsalis Pedis (R) Skin: Warm, Dry, Intact Neurological: No New Focal Deficit Psy/Mental Status: Alert, Normal Affect, Normal Mood - Problem List & Annotations (1) Colitis SNOMED Code(s): 08763697 Code(s): K52.9 - NONINFECTIVE GASTROENTERITIS AND COLITIS, UNSPECIFIED Status: Acute Priority: High (2) Hyponatremia SNOMED Code(s): 95379726 Code(s): E87.1 - HYPO-OSMOLALITY AND HYPONATREMIA Status: Acute Priority : High (3) Nausea SNOMED Code(s): 181635313 Code(s): R11.0 - NAUSEA Status: Resolved Priority: High (4) Hypertension SNOMED Code(s): 82756892 Code(s): I10 - ESSENTIAL (PRIMARY) HYPERTENSION Status: Resolved Priority : High Qualifiers: Hypertension type: essential hypertension Qualified Code(s): I10 - Essential (primary) hypertension - Problem List Review Problem List Initiated/Reviewed/Updated: Yes - Plan Plan:: Assessment: Acute: Colitis * Transverse colon colitis noted on CT scan * Patient presented with nausea, constipation, and abdominal discomfort * Constipation and abdominal discomfort have resolved * WBC elevated at 12.38 --> 12.08-->8.04 * CRP 1.9-->1.6 * Levaquin as ordered Hyponatremia, improving * Sodium 122-->121-->131 * Last 2 annual CMPs with her PCP have showed a sodium of 133 * Thermotabs as ordered Suspected Gastroesophageal Junction Mass * As evidenced by CT scan * Edmondson's esophagus diagnosed by EGD in 2016; patient denies ever experiencing GERD * EGD performed 03/05/[address] Landry * Reports no mass * Esophagitis with biopsy taken * Suggesting MRI if further investigation necessary (patient s/p TKA) * Suggest follow-up CT scan in 1-2 weeks after discharge Resolved: Nausea * Severe nausea since knee replacement February 22 * Patient reports tolerating liquids, but very poor food intake. Denies vomiting since one day after surgery. * Odansetron and scopolamine patch not offering much relief Hypertension * Acute on chronic * Due to inability to take medications 2/2 nausea * 178/77 --> 139/62 with IV labetalol Chronic: Hypercholesterolemia Asthma Osteoarthritis Hypothyroidism Anxiety S/P recent right TKA Plan: Admit to medical floor Clear liquid diet, advance as tolerated Continue IV hydration Resume home medications Routine AM labs Consulted Dr. Landry (surgeon) DVT prophylaxis: SCDs GI prophylaxis: Pepcid PT/OT Code status: Full code; PCP Dr. Kenney Likely discharge on 03/07/18, although may be sooner if electrolytes improve and diet is tolerated <Italia Parrish - Last Filed: 03/06/18 17:15> - Patient Data Vitals - Most Recent: Last Vital Signs Temp 36.4 C 03/06/18 08:34 Pulse 68 03/06/18 09:12 Resp 20 03/06/18 08:34 BP 114/66 03/06/18 09:12 Pulse Ox 100 03/06/18 08:34 I&O - Last 24 Hours: Intake & Output 03/06/18 03/06/18 03/06/18 06:59 14:59 22:59 Intake Total 2490 600 800 Output Total 450 1100 Balance 2040 600 -300 Lab Results Last 24 Hours: Laboratory Results - last 24 hr 03/06/18 Range/Units 13:15 Sodium 132 L (136-145) mEq/L Potassium 3.8 (3.5-5.1) mEq/L Chloride 101 (98-107) mEq/L Carbon Dioxide 24 (21-32) mEq/L Anion Gap 10.8 (5-15) BUN 10 (7-18) mg/dL Creatinine 0.9 (0.55-1.02) mg/dL Est Cr Clr Drug Dosing 52.10 mL/min Estimated GFR (MDRD) > 60 (>60) mL/min BUN/Creatinine Ratio 11.1 L (14-18) Glucose 143 H (83-115) mg/dL Calcium 7.8 L (8.5-10.1) mg/dL Magnesium 1.8 (1.8-2.4) mg/dl Med Orders - Current: Current Medications Discontinued Medications Acetaminophen (Tylenol) 650 mg PO Q6H PRN PRN Reason: Pain/Fever Last Admin: 03/06/18 13:54 Dose: 650 mg Albuterol (Proventil Hfa) 0 gm INH DAILY PRN PRN Reason: asthma Alprazolam (Xanax) 0.5 mg PO TID PRN PRN Reason: Anxiety Last Admin: 03/05/18 23:30 Dose: 0.5 mg Amlodipine Besylate (Norvasc) 2.5 mg PO BID [facility] Last Admin: 03/06/18 09:11 Dose: 2.5 mg Aspirin (Ecotrin) 325 mg PO BID [facility] Last Admin: 03/06/18 09:10 Dose: 325 mg Carvedilol (Coreg) 6.25 mg PO BID [facility] Last Admin: 03/06/18 09:12 Dose: 6.25 mg Citalopram Hydrobromide (Celexa) 10 mg PO DAILY [facility] Last Admin: 03/06/18 09:12 Dose: 10 mg Famotidine (Pepcid) 40 mg IVPUSH DAILY [facility] Last Admin: 03/06/18 09:21 Dose: 40 mg Fentanyl (Sublimaze) Confirm Administered Dose 100 mcg .ROUTE .STK-MED ONE Stop: 03/05/18 07:39 Hydromorphone HCl (Dilaudid) 0.5 mg IVPUSH Q4H PRN PRN Reason: Pain Hydromorphone HCl (Dilaudid) 0.5 mg IVPUSH Q4H PRN PRN Reason: Pain Sodium Chloride (Normal Saline) 1,000 mls @ 250 mls/hr IV ASDIRECTED [facility] Last Admin: 03/03/18 22:29 Dose: 250 mls/hr Levofloxacin/Dextrose 750 mg/ (Premix) 150 mls @ 100 mls/hr IV ONETIME ONE Stop: 03/04/18 05:02 Last Admin: 03/04/18 03:42 Dose: 100 mls/hr Sodium Chloride (Normal Saline) 1,000 mls @ 100 mls/hr IV ASDIRECTED [facility] Last Admin: 03/06/18 09:19 Dose: 100 mls/hr Levofloxacin/Dextrose 750 mg/ (Premix) 150 mls @ 100 mls/hr IV Q24H [facility] Last Admin: 03/06/18 03:49 Dose: 100 mls/hr Magnesium Sulfate 2 gm/ Premix 50 mls @ 25 mls/hr IV ONETIME ONE Stop: 03/04/18 06:40 Last Admin: 03/04/18 05:43 Dose: 25 mls/hr Lidocaine HCl (Xylocaine-Mpf 1%) Confirm Administered Dose 4 mls @ as directed .ROUTE .STK-MED ONE Stop: 03/05/18 07:39 Lactated Ringer's (Ringers, Lactated) Confirm Administered Dose 1,000 mls @ as directed .ROUTE .STK-MED ONE Stop: 03/05/18 08:08 Labetalol HCl (Normodyne) 10 mg IVPUSH ONETIME ONE; Protocol Stop: 03/03/18 22:57 Last Admin: 03/03/18 23:03 Dose: 10 mg Labetalol HCl (Normodyne) 10 mg IVPUSH ONETIME ONE; Protocol Stop: 03/04/18 00:15 Last Admin: 03/04/18 00:39 Dose: 10 mg Levothyroxine Sodium (Synthroid) 100 mcg PO ACBREAKFAST [facility] Last Admin: 03/06/18 05:51 Dose: 100 mcg Losartan Potassium (Cozaar) 50 mg PO BEDTIME [facility] Last Admin: 03/05/18 21:53 Dose: 50 mg Miscellaneous Information (Remove Patch) 1 ea TRDERM Q72H [facility] Ondansetron HCl (Zofran) 4 mg IVPUSH ONETIME ONE Stop: 03/03/18 22:16 Last Admin: 03/03/18 22:29 Dose: 4 mg Ondansetron HCl (Zofran) 4 mg IVPUSH Q8H PRN PRN Reason: Nausea/Vomiting Last Admin: 03/04/18 17:42 Dose: 4 mg Ondansetron HCl (Zofran Odt) 4 mg PO Q8H PRN PRN Reason: Nausea Ondansetron HCl (Zofran) Confirm Administered Dose 4 mg .ROUTE .STK-MED ONE Stop: 03/05/18 08:15 Oral Electrolytes (Thermotabs) 2 each PO BID [facility] Stop: 03/07/18 21:01 Last Admin: 03/06/18 09:10 Dose: 2 each Promethazine Plo (Topical Gel) 0 each TOP ASDIRECTED [facility] Propofol (Diprivan 20 Ml) Confirm Administered Dose 200 mg .ROUTE .STK-MED ONE Stop: 03/05/18 07:39 Scopolamine (Transderm-Scop) 1.5 mg TRDERM Q72H PRN PRN Reason: Nausea Last Admin: 03/04/18 11:30 Dose: 1.5 mg - My Orders Last 24 Hours: My Active Orders 03/06/18 14:05 Ready for Discharge [RC] PER UNIT ROUTINE
[2018-03-05] MEDS: Acetaminophen 325 MG Tab PO PRN (16:05)
[2018-03-05] MEDS: Losartan 25 MG Tab PO SCH (21:53)
[2018-03-05] MEDS: ALPRAZolam 0.5 MG Tab PO PRN (23:30)
[2018-03-06] MEDS: Levofloxacin/Dextrose 5%-Water 750 MG in Premix Bag 1 BAG IV SCH (03:49)
[2018-03-06] MEDS: Levothyroxine 100 MCG Tab PO SCH (05:51)
[2018-03-06] MEDS: Sodium Chloride/Potassium Chloride Tab PO SCH (09:10)
[2018-03-06] MEDS: Aspirin 325 MG Tab.EC PO SCH (09:10)
[2018-03-06] MEDS: amLODIPine 2.5 MG Tab PO SCH (09:11)
[2018-03-06] MEDS: Citalopram 10 MG Tab PO SCH (09:12)
[2018-03-06] MEDS: Carvedilol 6.25 MG Tab PO SCH (09:12)
[2018-03-06 09:13] VITALS: BP 114/66
[2018-03-06] MEDS: Sodium Chloride 0.9% 1,000 ML IV SCH (09:19)
[2018-03-06] MEDS: Famotidine 20 MG/2 ML SDV IVPUSH SCH (09:21)
[2018-03-06] MEDS: Acetaminophen 325 MG Tab PO PRN (13:54)
--- NOTE | 2018-03-06 14:03 | PCM.DCSUM1 ---
Discharge Summary - Hospital Course Free Text/Narrative:: 82 year old female with abdominal pain associated with N/V had abnormal electrolytes which were corrected. She was diagnosed with mild colitis, received IV ATB and gradually tolerated an advancement of her diet. A gen surg consult was performed, EGD was performed on 03/05/18. The results were WNL. A colonoscopy will be scheduled as an outpatient. A CT of the abdomen/ pelvis was performed. A follow up with her PCP as well as Dr Vo should be done within 2-3 weeks. HPI Initial Comments: Lashell Georges is an 82 year old female who presented to the ER yesterday complaining of persistent nausea, abdominal discomfort, and constipation. Patient underwent total right knee replacement on February 22 and has been nauseated ever since. States her appetite has been poor, eating <25% of normal. She's been drinking fluids with no issues. States she's not had a good bowel movement since surgery. Since then she's had multiple small bowel movements described as nuggets. Denies black/tarry stools or blood in stools. No pain with urination. No increased flatulence noted. Nauseous persisted with a poor appetite unable to take any medications yesterday evening. Blood pressures elevated with examination. She has not taken her amlodipine, losartan, and carvedilol. Patient denies any chest pain, shortness of breath, fever chills, dysuria, syncope, or any additional complaints. Dressing to the right knee was changed 2 days ago with no concerning findings. She has not been taking Percocet for pain. Tylenol only. Today, the patient reports relief of the abdominal discomfort which she believes is from contrast associated diarrhea overnight. Her nausea persists. Has not vomited since the day after surgery. Diagnosis: Stroke: No - Discharge Data Discharge Date: 03/06/18 Discharge Disposition: Home, Self-Care 01 Condition: Good - Patient Summary/Data Operative Procedure(s) Performed: EGD with bx Consults: Consultations 03/04/18 04:45 PT Evaluation and Treatment [CONS] Routine 03/04/18 04:46 Consult to Case Management [CONS] Routine OT Evaluation and Treatment [CONS] Routine 03/04/18 10:05 Consult to Physician [CONS] Routine - Patient Instructions Diet: Usual Diet as Tolerated Activity: As Tolerated Driving: Do Not Drive Showering/Bathing: May Shower Notify Provider of: Fever, Increased Pain, Nausea and/or Vomiting - Discharge Plan *PRESCRIPTION DRUG MONITORING PROGRAM REVIEWED*: Not Applicable *COPY OF PRESCRIPTION DRUG MONITORING REPORT IN PATIENT ANGEL: Not Applicable Home Medications: Home Meds ALPRAZolam [Xanax] 0.5 mg PO TID PRN 06/19/16 [History] Albuterol Sulfate [Proventil Hfa] 2 puff INH DAILY PRN 06/19/16 [History] Levothyroxine [Synthroid] 100 mcg PO DAILY 06/19/16 [History] Carvedilol 6.25 mg PO BID 02/19/18 [History] Escitalopram Oxalate [Lexapro] 5 mg PO DAILY 02/19/18 [History] Losartan [Cozaar] 50 mg PO BEDTIME 02/19/18 [History] Multivitamin [Daily Multiple Vitamin] 1 tab PO DAILY 02/19/18 [History] amLODIPine [Norvasc] 2.5 mg PO BID 02/19/18 [History] Aspirin [Ecotrin] 325 mg PO BID tab.ec 02/23/18 [Rx] Ondansetron HCl [Zofran] 4 mg PO Q8H PRN 03/03/18 [History] Promethazine [Phenergan] 1 applic TOP ASDIRECTED 03/03/18 [History] Other Amb Orders: BASIC METABOLIC PANEL,BMP [CHEM] Time Frame: 03/10/18, Facility: [facility], Location: [facility] Patient Handouts: Hyponatremia Forms: ED Department Discharge Referrals: Jayden Smith MD [Primary Care Provider] - (Keep your previously scheduled apt.'s with Dr. Smith/Diamond Campoverde.) - Discharge Summary/Plan Comment DC Time >30 min.: No Discharge Summary/Plan Comment: Assessment: Acute: Colitis * Transverse colon colitis noted on CT scan * Patient presented with nausea, constipation, and abdominal discomfort * Constipation and abdominal discomfort have resolved * WBC elevated at 12.38 --> 12.08-->8.04 * CRP 1.9-->1.6 * Levaquin as ordered Hyponatremia, improving * Sodium 122-->121-->131 * Last 2 annual CMPs with her PCP have showed a sodium of 133 * Thermotabs as ordered Suspected Gastroesophageal Junction Mass * As evidenced by CT scan * Edmondson's esophagus diagnosed by EGD in 2016; patient denies ever experiencing GERD * EGD performed 03/05/[address] Landry * Reports no mass * Esophagitis with biopsy taken * Suggesting MRI if further investigation necessary (patient s/p TKA) * Suggest follow-up CT scan in 1-2 weeks after discharge Resolved: Nausea * Severe nausea since knee replacement February 22 * Patient reports tolerating liquids, but very poor food intake. Denies vomiting since one day after surgery. * Odansetron and scopolamine patch not offering much relief Hypertension * Acute on chronic * Due to inability to take medications 2/2 nausea * 178/77 --> 139/62 with IV labetalol Chronic: Hypercholesterolemia Asthma Osteoarthritis Hypothyroidism Anxiety S/P recent right TKA Plan: Admit to medical floor Clear liquid diet, advance as tolerated Continue IV hydration Resume home medications Routine AM labs Consulted Dr. Landry (surgeon) DVT prophylaxis: SCDs GI prophylaxis: Pepcid PT/OT Code status: Full code; PCP Dr. Anne Marie RANDOLPH today, electrolytes WNL Additional CC's: Carmelo Kenney - General Info Date of Service: 03/04/18 Functional Status: Reports: Pain Controlled, Tolerating Diet, Ambulating, Urinating - Review of Systems General: Reports: No Symptoms HEENT: Reports: No Symptoms Pulmonary: Reports: No Symptoms Cardiovascular: Reports: No Symptoms Gastrointestinal: Reports: No Symptoms Genitourinary: Reports: No Symptoms Musculoskeletal: Reports: No Symptoms Skin: Reports: No Symptoms Neurological: Reports: No Symptoms Psychiatric: Reports: No Symptoms - Patient Data Vitals - Most Recent: Last Vital Signs Temp 36.4 C 03/06/18 08:34 Pulse 68 03/06/18 09:12 Resp 20 03/06/18 08:34 BP 114/66 03/06/18 09:12 Pulse Ox 100 03/06/18 08:34 Weight - Most Recent: 77.065 kg I&O - Last 24 hours: Intake & Output 03/05/18 03/06/18 03/06/18 22:59 06:59 14:59 Intake Total 1010 2490 300 Output Total 1200 450 Balance -190 2040 300 Lab Results - Last 24 hrs: Laboratory Results - last 24 hr 03/06/18 Range/Units 13:15 Sodium 132 L (136-145) mEq/L Potassium 3.8 (3.5-5.1) mEq/L Chloride 101 (98-107) mEq/L Carbon Dioxide 24 (21-32) mEq/L Anion Gap 10.8 (5-15) BUN 10 (7-18) mg/dL Creatinine 0.9 (0.55-1.02) mg/dL Est Cr Clr Drug Dosing 52.10 mL/min Estimated GFR (MDRD) > 60 (>60) mL/min BUN/Creatinine Ratio 11.1 L (14-18) Glucose 143 H (83-115) mg/dL Calcium 7.8 L (8.5-10.1) mg/dL Magnesium 1.8 (1.8-2.4) mg/dl Med Orders - Current: Current Medications Acetaminophen (Tylenol) 650 mg PO Q6H PRN PRN Reason: Pain/Fever Last Admin: 03/06/18 13:54 Dose: 650 mg Albuterol (Proventil Hfa) 0 gm INH DAILY PRN PRN Reason: asthma Alprazolam (Xanax) 0.5 mg PO TID PRN PRN Reason: Anxiety Last Admin: 03/05/18 23:30 Dose: 0.5 mg Amlodipine Besylate (Norvasc) 2.5 mg PO BID [facility] Last Admin: 03/06/18 09:11 Dose: 2.5 mg Aspirin (Ecotrin) 325 mg PO BID [facility] Last Admin: 03/06/18 09:10 Dose: 325 mg Carvedilol (Coreg) 6.25 mg PO BID [facility] Last Admin: 03/06/18 09:12 Dose: 6.25 mg Citalopram Hydrobromide (Celexa) 10 mg PO DAILY [facility] Last Admin: 03/06/18 09:12 Dose: 10 mg Famotidine (Pepcid) 40 mg IVPUSH DAILY [facility] Last Admin: 03/06/18 09:21 Dose: 40 mg Hydromorphone HCl (Dilaudid) 0.5 mg IVPUSH Q4H PRN PRN Reason: Pain Sodium Chloride (Normal Saline) 1,000 mls @ 100 mls/hr IV ASDIRECTED [facility] Last Admin: 03/06/18 09:19 Dose: 100 mls/hr Levofloxacin/Dextrose 750 mg/ (Premix) 150 mls @ 100 mls/hr IV Q24H [facility] Last Admin: 03/06/18 03:49 Dose: 100 mls/hr Levothyroxine Sodium (Synthroid) 100 mcg PO ACBREAKFAST [facility] Last Admin: 03/06/18 05:51 Dose: 100 mcg Losartan Potassium (Cozaar) 50 mg PO BEDTIME [facility] Last Admin: 03/05/18 21:53 Dose: 50 mg Miscellaneous Information (Remove Patch) 1 ea TRDERM Q72H [facility] Ondansetron HCl (Zofran) 4 mg IVPUSH Q8H PRN PRN Reason: Nausea/Vomiting Last Admin: 03/04/18 17:42 Dose: 4 mg Ondansetron HCl (Zofran Odt) 4 mg PO Q8H PRN PRN Reason: Nausea Oral Electrolytes (Thermotabs) 2 each PO BID [facility] Stop: 03/07/18 21:01 Last Admin: 03/06/18 09:10 Dose: 2 each Promethazine Plo (Topical Gel) 0 each TOP ASDIRECTED [facility] Scopolamine (Transderm-Scop) 1.5 mg TRDERM Q72H PRN PRN Reason: Nausea Last Admin: 03/04/18 11:30 Dose: 1.5 mg Discontinued Medications Fentanyl (Sublimaze) Confirm Administered Dose 100 mcg .ROUTE .STK-MED ONE Stop: 03/05/18 07:39 Hydromorphone HCl (Dilaudid) 0.5 mg IVPUSH Q4H PRN PRN Reason: Pain Sodium Chloride (Normal Saline) 1,000 mls @ 250 mls/hr IV ASDIRECTED [facility] Last Admin: 03/03/18 22:29 Dose: 250 mls/hr Levofloxacin/Dextrose 750 mg/ (Premix) 150 mls @ 100 mls/hr IV ONETIME ONE Stop: 03/04/18 05:02 Last Admin: 03/04/18 03:42 Dose: 100 mls/hr Magnesium Sulfate 2 gm/ Premix 50 mls @ 25 mls/hr IV ONETIME ONE Stop: 03/04/18 06:40 Last Admin: 03/04/18 05:43 Dose: 25 mls/hr Lidocaine HCl (Xylocaine-Mpf 1%) Confirm Administered Dose 4 mls @ as directed .ROUTE .STK-MED ONE Stop: 03/05/18 07:39 Lactated Ringer's (Ringers, Lactated) Confirm Administered Dose 1,000 mls @ as directed .ROUTE .STK-MED ONE Stop: 03/05/18 08:08 Labetalol HCl (Normodyne) 10 mg IVPUSH ONETIME ONE; Protocol Stop: 03/03/18 22:57 Last Admin: 03/03/18 23:03 Dose: 10 mg Labetalol HCl (Normodyne) 10 mg IVPUSH ONETIME ONE; Protocol Stop: 03/04/18 00:15 Last Admin: 03/04/18 00:39 Dose: 10 mg Ondansetron HCl (Zofran) 4 mg IVPUSH ONETIME ONE Stop: 03/03/18 22:16 Last Admin: 03/03/18 22:29 Dose: 4 mg Ondansetron HCl (Zofran) Confirm Administered Dose 4 mg .ROUTE .STK-MED ONE Stop: 03/05/18 08:15 Propofol (Diprivan 20 Ml) Confirm Administered Dose 200 mg .ROUTE .STK-MED ONE Stop: 03/05/18 07:39 - Exam Quality Assessment: Reports: DVT Prophylaxis General: Reports: Alert, Oriented, Cooperative, No Acute Distress HEENT: Reports: Pupils Equal, Pupils Reactive, EOMI Neck: Reports: Trachea Midline, No JVD Lungs: Reports: Normal Respiratory Effort Cardiovascular: Reports: Regular Rate, Regular Rhythm GI/Abdominal Exam: Normal Bowel Sounds, Soft, Non-Tender, No Organomegaly, No Distention (Female) Exam: Deferred Rectal (Female) Exam: Deferred Back Exam: Reports: Normal Inspection Extremities: Normal Inspection, Non-Tender, Normal Capillary Refill Skin: Reports: Warm, Dry Neurological: Reports: No New Focal Deficit, Normal Gait, Normal Speech Psy/Mental Status: Reports: Alert, Normal Affect, Normal Mood
--- NOTE | 2018-03-08 07:33 | OR ---
DATE OF OPERATION: 03/05/2018 SURGEON: Luis Landry MD PREOPERATIVE DIAGNOSIS: Nausea and abnormal CT scan showing a mass projecting into the stomach at the GE junction. POSTOPERATIVE DIAGNOSIS: Nausea and abnormal CT scan showing a mass projecting into the stomach at the GE junction. OPERATION PERFORMED: EGD with biopsy done under IV sedation. FINDINGS: Were that of some evidence of esophagitis at the GE junction located about 38-40 cm. There was no real hiatal hernia noted. Rest of the fundus was unremarkable on J maneuver. Second portion of the duodenum, duodenal bulb, pyloric channel, antrum, body, cardia of the stomach did not show any pathology and the balance of the esophagus was unremarkable. There is evidence of some chronic esophagitis at the GE junction. ANESTHESIA: Procedure is done under IV sedation. DESCRIPTION OF PROCEDURE: The patient was taken to the operating room, placed in a supine position, connected to monitoring equipment and given IV sedation. Bite block was inserted. Video Olympus gastroscope placed in the posterior oropharynx. Under direct vision, threaded past the cricopharyngeus down the esophagus into the stomach. Stomach was insufflated, and the scope passed through the pylorus and to the second portion of the duodenum and slowly withdrawn noting normal second portion of the duodenum, duodenal bulb, pyloric channel. Antrum, body, and cardia of the stomach were viewed. J-maneuver showed intact hiatus. 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 Scope withdrawn to the GE junction showed some irritation and this was biopsied. The rest of the esophagus viewed, the scope withdrawn and unremarkable. The patient tolerated the procedure, specimen sent to Pathology in a labeled container, and the patient sent to recovery room in a stable condition. ESTIMATED BLOOD LOSS: MMODAL /[id number]
== END 2018-03-06 15:30 | disposition home or self-care (01) | DRG 392 ==
LOC: SUPCPDRO 21:10 → JD.ED 21:10 → JD.MS 03-04 03:37
PROVIDERS: ADMIT Internal Medicine Cardiovascular Disease; ATTEND Internal Medicine Cardiovascular Disease
PROC: 0DB48ZX Excision of Esophagogastric Junction, Via Natural or Artificial Opening Endoscopic, Diagnostic (ICD-10-PCS; principal; 2018-03-05)
DX: K52.9 Noninfective gastroenteritis and colitis, unspecified (principal); E87.1 Hypo-osmolality and hyponatremia; K31.9 Disease of stomach and duodenum, unspecified; K59.00 Constipation, unspecified; E78.00 Pure hypercholesterolemia, unspecified; K20.9 Esophagitis, unspecified; D17.79 Benign lipomatous neoplasm of other sites; I10 Essential (primary) hypertension; J45.909 Unspecified asthma, uncomplicated; M19.90 Unspecified osteoarthritis, unspecified site; F41.9 Anxiety disorder, unspecified; H54.7 Unspecified visual loss; E03.9 Hypothyroidism, unspecified; Z96.651 Presence of right artificial knee joint; Z79.899 Other long term (current) drug therapy; R53.81 Other malaise; N28.9 Disorder of kidney and ureter, unspecified; R10.9 Unspecified abdominal pain; K22.70 Barrett's esophagus without dysplasia; R11.0 Nausea; Z91.048 Other nonmedicinal substance allergy status; Z79.82 Long term (current) use of aspirin; Z86.010 Personal history of colon polyps
CPT/HCPCS: 36415; 74019; 74177; 80053; 81001; 84484; 86140; 93005; 96361; 96374; 96375; 96376; 99285; J2405; J3490; J7040; 80048; 83605; 83735; 83880; 85007; 85025; 85027; 93010; 97110-GP; 97116-GP; 97161-GP; 97165-GO; A9270-GY; J1956; J2001; J2704; J3010; J3475; J7120

== ENCOUNTER 2019-12-04 12:53 | Emergency (ER) | payer MEDICARE, OTHER ==
[2019-12-04 13:09] VITALS: BP 138/82; PULSE 98
[2019-12-04] MEDS ORDERED: Lidocaine 1% 10 ML MDV INJECT ONE (13:25)
--- NOTE | 2019-12-04 13:26 | EDM.PDOC ---
ED HPI GENERAL MEDICAL PROBLEM - General Chief Complaint: Head Injury Stated Complaint: FELL HIT FACE Time Seen by Provider: 12/04/19 13:10 Source of Information: Reports: Patient History Limitations: Reports: No Limitations - History of Present Illness INITIAL COMMENTS - FREE TEXT/NARRATIVE: 84-year-old female presents to the ED after tripping and falling on her patio outside her home this morning. She states she simply went out to fetch a cup of coffee that she had left on the grill and when she turned around her dog got between her legs causing her to trip and fall face first into the concrete with very little warning. She was wearing eyeglasses and they stayed on but she scratched up the lenses quite severely. She suffered multiple lacerations both above the right eye as well as inferior to the right over the maxillary sinus and nasolabial fold on the right side as well as her corner of her right lower lip. She states that she did not lose consciousness. She has a very large hematoma over the right supraorbital ridge above her eye with a 2.5 cm laceration that will require summary sutures to repair. Other lacerations adjacent to her nose in the nasolabial fold and over the maxillary sinus will likely needs a few sutures as well as well as a few sutures in her right lower lip. Does complain of some cervical neck pain. She believes her tetanus toxoid is up-to-date but will check with her personal physician tomorrow to make sure. Suffered superficial abrasions to the PIP joints of both fifth digits of her hands as well as superficial abrasions to both anterior knees. Nasal hemorrhage. Onset: Today Onset Date: 12/04/19 Onset Time: 12:30 Duration: Minutes: Location: Reports: Head, Face, Neck, Upper Extremity, Left, Upper Extremity, Right, Lower Extremity, Left, Lower Extremity, Right Quality: Reports: Ache, Burning, Stabbing Severity: Moderate Improves with: Reports: Rest Worsens with: Reports: None Context: Reports: Trauma (Tripped and fell on the concrete patio outside of her home this morning.). 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.) - Related Data Allergies Allergy/AdvReac Type Severity Reaction Status Date / Time animal dander Allergy Cannot Verified 02/19/18 13:12 Remember seasonal Allergy Cannot Uncoded 02/19/18 13:12 Remember Home Meds: Home Meds ALPRAZolam [Xanax] 0.5 mg PO TID PRN 06/19/16 [History] Albuterol Sulfate [Proventil Hfa] 2 puff INH DAILY PRN 06/19/16 [History] Levothyroxine [Synthroid] 100 mcg PO DAILY 06/19/16 [History] Escitalopram Oxalate [Lexapro] 5 mg PO DAILY 02/19/18 [History] Losartan [Cozaar] 50 mg PO BEDTIME 02/19/18 [History] Multivitamin [Daily Multiple Vitamin] 1 tab PO DAILY 02/19/18 [History] carvediloL [Carvedilol] 6.25 mg PO BID 02/19/18 [History] Doxycycline [Vibra-Tabs] 100 mg PO BID #16 tablet 12/04/19 [Rx] Past Medical History HEENT History: Reports: Impaired Vision, Other (See Below) Other HEENT History: wears glasses, has upper denture Cardiovascular History: Reports: High Cholesterol, Hypertension Respiratory History: Reports: Asthma Gastrointestinal History: Reports: Other (See Below) Other Gastrointestinal History: Colonoscopy in 2014 notable for hyperplastic polyps, tubular adenoma, and sessile serrated adenoma. 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: Musculoskeletal History: Reports: Osteoarthritis Neurological History: Reports: None Psychiatric History: Reports: Anxiety Endocrine/Metabolic History: Reports: Hypothyroidism Hematologic History: Reports: None Immunologic History: Reports: None Oncologic (Cancer) History: Reports: None Dermatologic History: Reports: None - Past Surgical History Head Surgeries/Procedures: Reports: None HEENT Surgical History: Reports: Tonsillectomy Cardiovascular Surgical History: Reports: None GI Surgical History: Reports: Colonoscopy, EGD Female Surgical History: Reports: Tubal Ligation Endocrine Surgical History: Reports: None Neurological Surgical History: Reports: None Musculoskeletal Surgical History: Reports: None, Knee Replacement Oncologic Surgical History: Reports: None Social & Family History - Family History Family Medical History: Noncontributory - Caffeine Use Caffeine Use: Reports: Coffee - Living Situation & Occupation Living situation: Reports: Occupation: Retired ED ROS GENERAL - Review of Systems Review Of Systems: See Below Constitutional: Denies: Fever, Chills, Malaise, Weakness HEENT: Reports: Glasses. Denies: Contact Lenses Respiratory: Reports: No Symptoms Cardiovascular: Reports: Blood Pressure Problem, Other (Artery disease) Endocrine: Reports: Fatigue GI/Abdominal: Reports: Constipation : Reports: Frequency (Stress-induced), Incontinence Musculoskeletal: Reports: Joint Pain (He sips low back and neck at times), Other (Arthritic changes. 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 Heart rate is 98 and sinus respiratory 16 with O2 sats of 98% room air. BP 138/82.) Head: Scalp Hematoma (Frontal scalp forehead.), Scalp Tenderness (Large hematoma over the supraorbital ridge of her right eye with a 2.5 cm linear laceration 2 cm above the supraorbital ridge. It is gaping slightly and will require few sutures to repair.), Other (Patient has multiple superficial abrasions and lacerations in the nasolabial fold and over the right maxillary sinus area some of which will require laceration repair. She also has a puncture wound to her right lower lip with subcutaneous tissue extruding from the wound that will require repair as well.) Nexus Criteria: Posterior, Midline Cervical Tenderness Eyes: Bilateral Eye: Normal Inspection (No injury to the cornea or the conjunctiva in the right side.) Nose: Nasal Ecchymosis, Other (There is significant bruising of the right lateral aspect of her nose with swelling. However there is no intranasal hemorrhage or hematoma.). No: Nasal Deformity Throat/Mouth: Other (And is suffered a puncture wound to her right lower lip with some fat extruding from the wound it will require surgical repair. There is no inner mucosal injury to the lips. Patient has dentures.). No: Normal Inspection, Normal Lips, Normal Oropharynx, Dental Tenderness Neck: Normal Alignment, Normal Inspection, Paraspinous Muscle Tender ( Significant paraspinal muscle spasm on the left side from the base of the neck to C7. There is very minimal spasm on the right side. Range of motion was not assessed.). No: Spinous Processes Tender Respiratory: No Respiratory Distress, Lungs Clear, Normal Breath Sounds, No Accessory Muscle Use, Other (Firm compression of her ribs and sternum revealed no pain or injuries. No subcutaneous emphysema identified.) Cardiovascular: Normal Peripheral Pulses, Regular Rate, Rhythm, No Edema, No Gallop, No Murmur, No Rub GI/Abdominal Exam: Normal Bowel Sounds, Soft, Non-Tender, No Organomegaly, No Mass, Pelvis Stable Back Exam: Normal Inspection, Full Range of Motion. No: CVA Tenderness (L), CVA Tenderness (R) Extremities: Other (She has superficial abrasions over the PIP joints of both fifth fingers she has full range of motion of the fingers with no clinical evidence of fractures. So a superficial abrasions over both anterior knees over the patellas but has full range of motion of her lower extremities. She has had a total knee replacement on the right side.) Neurologic: No Motor/Sensory Deficits, Alert, Normal Mood/Affect, Oriented x 3 Skin: Normal Color, Warm/Dry - Monik Coma Score Best Eye Response (Monik): (4) Open Spontaneously Best Verbal Response (Monik): (5) Oriented Best Motor Response (Monik): (6) Obeys Commands Monik Total: 15 ED LACERATION/WOUND & RHETT PROC - Laceration/Wound Repair Right Lower Midline Distal Forehead Lac/wound length in cm: 2.5 (Curvilinear superficial laceration above the right eye or supraorbital ridge was sutured x5) Appearance: Subcutaneous, Clean Distal NVT: Neuro & Vascular Intact Anesthetic Type: Local Local Anesthesia - Lidocaine (Xylocaine): 1% Plain Local Anesthetic Volume: 2cc Skin Prep: Saline Closed with: Sutures Suture Size: 5-0 # of Sutures: 5 Suture Type: Nylon, Interrupted, Simple Course - Vital Signs Last Recorded V/S: Last Vital Signs Temp 36.2 C 12/04/19 13:04 Pulse 98 12/04/19 13:04 Resp 16 12/04/19 13:04 BP 138/82 12/04/19 13:04 Pulse Ox 98 12/04/19 13:04 - Orders/Labs/Meds Orders: Active Orders 24 hr Category Date Time Status Cervical Spine wo Cont [CT] Stat Exams 12/04/19 13:23 Taken Head wo Cont [CT] Stat Exams 12/04/19 13:21 Taken Maxillofacial w/o CM [Max Facial Sinus wo Cont] [CT] Exams 12/04/19 13:20 Taken Stat Meds: Medications Discontinued Medications Generic Name Dose Route Start Last Admin Trade Name Fratnz PRN Reason Stop Dose Admin Doxycycline Hyclate 100 mg 12/04/19 15:13 12/04/19 15:35 Vibramycin PO 12/04/19 15:14 100 mg ONETIME ONE Administration Lidocaine HCl 10 ml 12/04/19 13:25 12/04/19 15:43 Xylocaine 1% INJECT 12/04/19 13:26 10 ml ONETIME ONE Administration Lidocaine HCl Confirm 12/04/19 14:22 12/04/19 15:44 Xylocaine 1% Administered 12/04/19 14:23 10 ml Dose Administration 10 ml .ROUTE .STK-MED ONE - Radiology Interpretation Free Text/Narrative:: 84-year-old female presents to the ED after getting tripped up by her dog old on her concrete patio this morning. She fell face first into the concrete with multiple contusions to the right side of her face both above her right eye supraorbital ridge and inferior to the right eye over the maxillary sinus and lateral aspect of her right naris. She also has a solitary puncture wound to the lateral aspect of her right lower lip. Some of these lacerations or abrasions are deep enough to require suture repair. Leaves her tetanus toxoid is up-to-date but will check with her physician tomorrow. She has tenderness throughout her left cervical spine. Plan she will have CT maxillofacial bones. She will have CT head and cervical spine carried out. Wounds will be then cleansed and anesthetized with lidocaine 1%. - Re-Assessments/Exams Free Text/Narrative Re-Assessment/Exam: 12/04/19 14:17 : CT of the head reveals mildly prominent sulci. There is very mild small vessel demyelination changes in the basal ganglia without any lacunar infarcts. There is no intracranial bleeding or mass-effect. CT of the maxillofacial bones reveal a slightly comminuted fracture of the right alae of the nose with minimal depression. Position is satisfactory will not require surgical repair. The nasal spine is unfractured. The maxillary sinus reveals no fracture of the anterior posterior or lateral schreiber. No fracture in the floor of the orbit. There is a large amount of soft tissue swelling which is apparent clinically over the supraorbital ridge and forehead on the right side. The right eyelid is almost completely closed due to swelling. There was no blood in the retro-orbital space. CT of the cervical spine reveals advanced degenerative changes at multiple levels particularly disc space between cervical 2 and 3 with vacuum phenomenon. There is significant facet arthropathy throughout the left side. Slight loss of lordotic curvature. There is fusion of the 7 and T1 vertebra. X-rays are identified. 12/04/19 15:11 multiple facial lacerations have now been repaired under local anesthetic using lidocaine 1%. Patient supraorbital ridge area 2.5 cm in length sutured x5 with 5-0 Ethilon suture. Duration puncture wound to the right lower lip required debridement and 2 sutures in the vermilion border to provide hemostasis. These were 5-0 Vicryl sutures and should dissolve on their own. There is a puncture wound above the right upper lip that also required debridement and sutures x2 with 5-0 Vicryl suture to provide closure. The major laceration was complex and started at the upper nose essentially along the nasolabial fold and approximately 7 cm in length with multiple flaps. Debridement required in 3 or 4 different areas. Wound was closed with 5-0 Ethilon times 22 sutures. Will need to be removed in 8 days time. Time we were finished her laceration repair her right eye is completely closed due to swelling of the right upper eyelid. She will apply ice to the right yakelin-face for 20 minutes out of every 3 hours for the next 2 days to try and reduce swelling. Tylenol 650 mg every 4 hours or Motrin 600 mg every 6 hours as needed to relieve pain and inflammation. She will be placed on antibiotic doxycycline 100 mg twice daily for the next 8 days to prevent secondary wound infection first tablet was provided in the ED today. Again she will check with Dr. Bustillo`s office tomorrow to identify when last Tetanus toxoid was administered. Departure - Departure Time of Disposition: 15:16 Disposition: Home, Self-Care 01 Condition: Fair Clinical Impression: Fall as cause of accidental injury at home as place of occurrence Qualifiers: Encounter type: initial encounter Qualified Code(s): W19.XXXA - Unspecified fall, initial encounter Abrasion of face and extremities Qualifiers: Encounter type: initial encounter Laterality: right Qualified Code(s): S00.81XA - Abrasion of other part of head, initial encounter Facial contusion Qualifiers: Encounter type: initial encounter Qualified Code(s): S00.83XA - Contusion of other part of head, initial encounter Sprain of cervical neck Qualifiers: Encounter type: initial encounter Qualified Code(s): S13.9XXA - Sprain of joints and ligaments of unspecified parts of neck, initial encounter Nasal bones, closed fracture Qualifiers: Encounter type: initial encounter Qualified Code(s): S02.2XXA - Fracture of nasal bones, initial encounter for closed fracture - Discharge Information *PRESCRIPTION DRUG MONITORING PROGRAM REVIEWED*: Not Applicable *COPY OF PRESCRIPTION DRUG MONITORING REPORT IN PATIENT ANGEL: Not Applicable Prescriptions: Doxycycline [Vibra-Tabs] 100 mg PO BID #16 tablet Instructions: Abrasion, Facial or Scalp Contusion, [id number], Contusion, [id number], Head Injury, Adult, [id number] Referrals: Carmelo Kenney MD [Primary Care Provider] - Forms: ED Department Discharge Additional Instructions: Evaluation in the emergency room today in regards to trip and fall outside on your patio deck with direct blow to your face on concrete surface. This resulted in multiple contusions to your right face particularly the right upper eyelid and the tissue above the right eye i.e. lower forehead. 2.5 cm curvilinear laceration above your right eye was sutured x5 to provide wound closure. Jagged laceration traveling along the nasolabial fold on the right side of the face was sutured x22 with 5-0 Ethilon sutures to provide wound closure. Puncture wound above the right upper lip was debrided and sutured x2 with 5-0 Ethilon sutures which we will follow out on their own over the next 7 or 8 days. Similarly puncture wound to the right lower lip vermilion border was sutured x2 to provide wound closure as well with 5-0 Ethilon which should dissolve on its own over the next 7 or 8 days as well. Is a 1 cm superficial laceration to the buccal mucosa on the inside of your mouth adjacent to your right upper molar teeth that will be sore but will heal on its own over the next [address] of your brain revealed no intracranial bleeding or mass- effect. CT of the neck reveals advanced degenerative arthritic changes with degenerative disc disease but no fractures. CT of the maxillofacial bones reveals mildly comminuted fractures of the right alae nasal bone along the right side of your nose with good position. These bones will heal together on their own but will be very tender for the next month or so. Multiple lacerations to right side of your face were sutured under local anesthetic as well. Sutures will need to be removed in 8 days time. Please phone your doctor 's office and arrange an appointment to have this carried out. Ice pack to the right side of your face for 1/2-hour every 3 hours for the next day or 2 to reduce swelling. Tylenol 650 mg every 6 hours as needed to reduce pain or Motrin 600 mg every 6 hours to reduce pain and inflammation as well. Need to take antibiotic doxycycline 100 mg twice daily for the next 8 days to prevent secondary wound infection. That was provided in the ED. 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 Sepsis Event Note - Evaluation Sepsis Screening Result: No Definite Risk - Focused Exam Vital Signs: Vital Signs Temp Pulse Resp BP Pulse Ox 12/04/19 13:04 36.2 C 98 16 138/82 98 Date Exam was Performed: 12/04/19 Time Exam was Performed: 20:09 - My Orders Last 24 Hours: My Active Orders 12/04/19 13:20 Maxillofacial w/o CM [Max Facial Sinus wo Cont] [CT] Stat 12/04/19 13:21 Head wo Cont [CT] Stat 12/04/19 13:23 Cervical Spine wo Cont [CT] Stat - Assessment/Plan Last 24 Hours: My Active Orders 12/04/19 13:20 Maxillofacial w/o CM [Max Facial Sinus wo Cont] [CT] Stat 12/04/19 13:21 Head wo Cont [CT] Stat 12/04/19 13:23 Cervical Spine wo Cont [CT] Stat ED LACERATION/WOUND PROCEDURES - Laceration/Wound Repair Right Middle Face Laceration/Wound Length In cm: 7.0 (Jagged subcutaneous laceration starting along the right lateral nose and travels down the nasolabial fold on the right side measuring 7 cm. This had multiple jagged lacerations and flaps) Appearance: Subcutaneous ( that had to be repaired.), Mildly Contaminated Distal NVT: Neuro & Vascular Intact Anesthetic Type: Local Local Anesthesia - Lidocaine (Xylocaine): 1% Plain Local Anesthetic Volume: Other (15 cc) Skin Prep: Saline Wound Exploration, Debridement, Revision: Wound Explored, Moderate Debridement, Foreign Material Removed Suture Size: 5-0 # of Sutures: 22 Suture Type: Silk, Nylon, Simple Suture Size: Other # of Sutures: 4 (Puncture wound above the right lip required debridement and sutures x2 and puncture wound in the vermilion border of the right lower lip required debridement and sutured x2 with 5-0 Vicryl suture.) Subcutaneous Repair With: Vicryl
[2019-12-04] MEDS ORDERED: Lidocaine 1% 10 ML MDV ONE (14:22)
[2019-12-04] MEDS ORDERED: Doxycycline 100 MG Cap PO ONE (15:13)
--- NOTE | 2019-12-05 07:52 | CT ---
CT facial bones Technique: Multiple axial sections through the facial bones were obtained. Study obtained from below the mandible superior through the frontal sinuses. Findings: Soft tissue hematoma noted within the right frontal scalp. Soft tissue swelling noted within the right cheek. Fracture noted within the right side of the nasal bone which is mildly displaced. No additional fracture is appreciated. Retention cyst is noted within the right maxillary sinus measuring 1.2 cm in size. Moderate mucosal thickening seen with the posterior left ethmoid sinuses. Impression: 1. Soft tissue hematoma within the right frontal scalp as well as soft tissue swelling within the right cheek. 2. Fracture within the right side of the nasal bone which is mildly displaced. 3. No additional fracture is seen. Diagnostic code #3 This report was dictated in MDT I agree with preliminary report from [facility], finalized on , 3:12 PM Central Daylight Time
--- NOTE | 2019-12-05 07:52 | CT ---
CT cervical spine Technique: Multiple axial sections were obtained from above C1 inferiorly to the bottom of T2. Reconstructed sagittal and coronal images were reviewed. Comparison: No prior cervical spine imaging. Findings: Mild spondylolisthesis is noted at C3-4 and C4-5 due to degenerative apophyseal change. 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 Posterior disc space narrowing is noted at C2-3 through C4-5. Diffuse and severe disc space narrowing at C5-6. Diffuse and moderate narrowing is noted at the C6-7 disc space. Diffuse posterior spurring noted at C5-6. Moderate right-sided neural foraminal stenosis is at C3-4 with severe left-sided neural foraminal stenosis at C3-4. Mild left-sided neural foraminal stenosis noted at C4-5. Moderate left-sided neural foraminal stenosis noted at C5-6. No bony central canal stenosis is seen. No fracture is appreciated. Diffuse degenerative apophyseal change seen throughout the visualized spine. Detached bony density noted off the tip of the spinous process of C7 which appears old. Degenerative apophyseal change is seen most prominent at C5-6 and C6-7. Impression: 1. Diffuse degenerative change as described above. 2. No acute fracture is seen. Diagnostic code #2 This report was dictated in MDT I agree with preliminary report from [facility], finalized on 12/04/19, 3:16 PM [employer] Daylight Time
--- NOTE | 2019-12-05 07:52 | CT ---
Head CT Technique: Multiple axial sections through the brain were obtained. Intravenous contrast was not utilized. Comparison: No prior intracranial imaging is available. Findings: Ventricles along with basal cisterns and sulci over the convexities are mildly prominent. Diminished density noted within the periventricular white matter which is compatible with small vessel ischemic demyelination change. No other abnormal parenchymal densities are seen. No evidence of intracranial hemorrhage. No midline shift or mass-effect is seen. Moderate mucosal thickening seen within the portion of the ethmoid sinus. Mastoid sinus is clear. No acute calvarial abnormality is seen. Soft tissue hematoma noted within the right frontal scalp. Atherosclerotic calcification is noted within the carotid siphon. Impression: 1. Soft tissue hematoma within the right frontal scalp. 2. Sinus finding believed to be chronic and incidental. 3. Senescent change as noted above. 4. Nothing acute is seen. Diagnostic code #2 This report was dictated in MDT I agree with preliminary report from [facility], finalized on 12/04/19, 3:08 PM [place] Daylight Time
== END 2019-12-04 15:45 | disposition home or self-care (01) ==
LOC: JD.ED 12:53
DX: S02.2XXA Fracture of nasal bones, initial encounter for closed fracture (principal); S13.9XXA Sprain of joints and ligaments of unspecified parts of neck, initial encounter; S00.83XA Contusion of other part of head, initial encounter; S00.81XA Abrasion of other part of head, initial encounter; I10 Essential (primary) hypertension; J45.909 Unspecified asthma, uncomplicated; E03.9 Hypothyroidism, unspecified; F41.9 Anxiety disorder, unspecified; Z91.09 Other allergy status, other than to drugs and biological substances; Z79.899 Other long term (current) drug therapy; W01.0XXA Fall on same level from slipping, tripping and stumbling without subsequent striking against object, initial encounter
CPT/HCPCS: 12013; 12053; 40650; 70450; 70486; 72125; 99284; A9270; J2001; 12011; 99283

== ENCOUNTER 2021-12-11 19:15 | Emergency (ER) | payer MEDICARE, OTHER ==
[2021-12-11 19:28] VITALS: BP 128/81; PULSE 63
[2021-12-11] MEDS ORDERED: diphenhydrAMINE 50 MG/ML SDV IM ONE (19:43)
[2021-12-11] MEDS ORDERED: Metoclopramide 10 MG/2 ML SDV IM ONE (19:43)
== END 2021-12-11 21:33 | disposition home or self-care (01) ==
LOC: JD.ED 19:15
DX: U07.1 COVID-19 (principal); R11.0 Nausea; E78.00 Pure hypercholesterolemia, unspecified; I10 Essential (primary) hypertension; E03.9 Hypothyroidism, unspecified; Z91.09 Other allergy status, other than to drugs and biological substances; Z79.899 Other long term (current) drug therapy
CPT/HCPCS: 96372; 99284; J1200; J2765; U0002

== ENCOUNTER 2021-12-16 16:36 | Emergency (ER) | payer MEDICARE, OTHER ==
[2021-12-16] MEDS ORDERED: Sodium Chloride 0.9% 10 ML Syringe FLUSH PRN (17:05)
[2021-12-16] MEDS ORDERED: Ondansetron 4 MG/2 ML SDV IVPUSH ONE (17:05)
[2021-12-16] MEDS ORDERED: Sodium Chloride 0.9% 1,000 ML IV SCH ×2 (17:15→19:00)
[2021-12-16] MEDS: Sodium Chloride 0.9% 1,000 ML IV ONE ×2 (19:27→19:56)
[2021-12-16 22:09] VITALS: BP 165/90; PULSE 86
== END 2021-12-16 20:32 | disposition home or self-care (01) ==
LOC: JD.ED 16:36
DX: U07.1 COVID-19 (principal); E87.1 Hypo-osmolality and hyponatremia; E78.00 Pure hypercholesterolemia, unspecified; I10 Essential (primary) hypertension; E03.9 Hypothyroidism, unspecified; Z91.09 Other allergy status, other than to drugs and biological substances; Z79.899 Other long term (current) drug therapy
CPT/HCPCS: 36415; 71045; 80053; 85025; 86140; 96361; 96374; 99283; J2405; J3490; J7030; 99284

== ENCOUNTER 2021-12-17 20:46 | Emergency (ER) | payer MEDICARE, OTHER ==
[2021-12-17 21:14] VITALS: BP 197/68; PULSE 98
[2021-12-17] MEDS ORDERED: Sodium Chloride 0.9% 10 ML Syringe FLUSH PRN (21:25)
[2021-12-17] MEDS ORDERED: Sodium Chloride 0.9% 1,000 ML IV ONE (21:25)
[2021-12-17 22:18] LABS: ESTIMATED GFR 60 mL/min (>60)
== END 2021-12-17 22:00 | disposition home or self-care (01) ==
LOC: JD.ED 20:46
DX: U07.1 COVID-19 (principal); J45.909 Unspecified asthma, uncomplicated; I10 Essential (primary) hypertension; E03.9 Hypothyroidism, unspecified; Z86.16 Personal history of COVID-19; Z79.899 Other long term (current) drug therapy; Z91.09 Other allergy status, other than to drugs and biological substances
CPT/HCPCS: 36415; 80053; 85025; 86140; 99283; J3490; J7030

== ENCOUNTER 2022-07-04 18:26 | Emergency (ER) | payer MEDICARE, OTHER ==
[2022-07-04] MEDS ORDERED: Sodium Chloride 0.9% 10 ML Syringe FLUSH PRN (19:30)
[2022-07-04] MEDS ORDERED: Labetalol 100 MG/20 ML MDV IVPUSH ONE (19:54)
[2022-07-04 23:01] VITALS: BP 156/87; PULSE 64
== END 2022-07-04 22:46 | disposition home or self-care (01) ==
LOC: JD.ED 18:26
DX: E87.1 Hypo-osmolality and hyponatremia (principal); I10 Essential (primary) hypertension; Z91.048 Other nonmedicinal substance allergy status; Z79.899 Other long term (current) drug therapy
CPT/HCPCS: 36415; 70450; 80048; 81001; 84484; 85025; 93005; 96374; 99284; J3490

== ENCOUNTER 2022-11-11 09:54 | Emergency (ER) | payer MEDICARE, OTHER ==
[2022-11-11] MEDS ORDERED: Ondansetron 4 MG/2 ML SDV IVPUSH ONE (10:36)
[2022-11-11] MEDS ORDERED: Pantoprazole 40 MG Vial IVPUSH ONE (10:38)
[2022-11-11] MEDS ORDERED: Sodium Chloride 0.9% 1,000 ML IV SCH (10:45)
[2022-11-11] MEDS: Sodium Chloride 0.9% 10 ML Syringe FLUSH PRN ×2 (11:04→11:33)
[2022-11-11] MEDS ORDERED: Iopamidol 612 MG/ML 100 ML Bottle IVPUSH ONE (11:32)
[2022-11-11] MEDS ORDERED: Sodium Chloride 0.9% 10 ML Syringe FLUSH PRN (11:32)
[2022-11-11 14:56] VITALS: BP 139/61; PULSE 81
== END 2022-11-11 14:43 ==
LOC: JD.ED 09:54
DX: K92.2 Gastrointestinal hemorrhage, unspecified (principal); D64.89 Other specified anemias; R19.00 Intra-abdominal and pelvic swelling, mass and lump, unspecified site; I10 Essential (primary) hypertension; J45.909 Unspecified asthma, uncomplicated; E03.9 Hypothyroidism, unspecified; Z79.899 Other long term (current) drug therapy; Z86.16 Personal history of COVID-19; Z91.09 Other allergy status, other than to drugs and biological substances
CPT/HCPCS: 36415; 74177; 80053; 85014; 85018; 85025; 85610; 85730; 86850; 86900; 86901; 96361; 96374; 96375; 99285; C9113; J2405; J3490; J7030; Q9967

== ENCOUNTER 2022-12-06 13:22 | Emergency (ER) | payer MEDICARE, OTHER ==
[2022-12-06] MEDS ORDERED: Sodium Chloride 0.9% 10 ML Syringe FLUSH PRN (13:38)
[2022-12-06 14:09] LABS: BASOPHILS ABSOLUTE AUTO 0.04 K/mm3 (0.01-0.08); BASOPHILS PERCENT AUTO 0.5 % (0.1-1.2); EOSINOPHILS ABSOLUTE AUTO 0.25 K/mm3 (0.04-0.36); EOSINOPHILS PERCENT AUTO 3.2 (0.7-5.8); HEMATOCRIT 33.4 % (34.1-44.9); IMMATURE GRAN ABSOLUTE AUTO 0.04 K/mm3 (0.00-0.10); IMMATURE GRAN PERCENT AUTO 0.5 % (<=1.0); LYMPHOCYTES ABSOLUTE AUTO 1.05 K/mm3 (1.18-3.74); LYMPHOCYTES PERCENT AUTO 13.4 % (19.3-51.7); MEAN CORPUSCULAR HEMOGLOBIN 30.7 pg (25.6-32.2); MEAN CORPUSCULAR HGB CONC 32.9 g/dl (32.2-35.5); MEAN CORPUSCULAR VOLUME 93.3 fl (79.4-94.8); MEAN PLATELET VOLUME 8.3 fl (9.4-12.3); MONOCYTES ABSOLUTE AUTO 0.72 K/mm3 (0.24-0.36); MONOCYTES PERCENT AUTO 9.2 % (4.7-12.5); NEUTROPHILS ABSOLUTE AUTO 5.73 K/mm3 (1.56-6.13); NEUTROPHILS PERCENT AUTO 73.2 % (34.0-71.1); PLATELET COUNT,PLT 340 K/mm3 (182-369); RED BLOOD CELL COUNT 3.58 M/mm3 (3.98-5.22); WHITE BLOOD CELL COUNT,WBC 7.83 K/mm3 (3.98-10.04)
[2022-12-06 14:34] LABS: INR 1.01; PROTHROMBIN TIME 10.8 SECONDS (9.7-12.0)
[2022-12-06 14:45] LABS: A/G RATIO 1.1 (1-2); ALBUMIN 3.4 g/dl (3.4-5.0); ANION GAP 12.3 (5-15); BILIRUBIN TOTAL 0.3 mg/dL (0.2-1.0); BUN/CREATININE RATIO 16.4 (14-18); CALCIUM 8.4 mg/dL (8.5-10.1); CREATININE 1.1 mg/dL (0.55-1.02); EST CRCL DRUG DOSING (CG) 39.08 mL/min; POTASSIUM,K 4.3 mEq/L (3.5-5.1); PROTEIN TOTAL,TP 6.6 g/dl (6.4-8.2)
[2022-12-06 15:44] VITALS: BP 174/61; PULSE 66
== END 2022-12-06 15:44 | disposition home or self-care (01) ==
LOC: JD.ED 13:22
DX: I10 Essential (primary) hypertension (principal); J45.909 Unspecified asthma, uncomplicated; E03.9 Hypothyroidism, unspecified; E78.00 Pure hypercholesterolemia, unspecified; Z91.09 Other allergy status, other than to drugs and biological substances; Z87.891 Personal history of nicotine dependence
CPT/HCPCS: 36415; 80053; 83880; 84484; 85025; 85610; 93005; 93010; 99282; 99283

== ENCOUNTER 2023-05-29 16:58 | Inpatient (IN) | payer MEDICARE, OTHER ==
[2023-05-29 19:59] LABS: ALBUMIN 3.4 g/dl (3.4-5.0); ANION GAP 14.3 (5-15); BILIRUBIN TOTAL 0.5 mg/dL (0.2-1.0); BUN/CREATININE RATIO 17.8 (14-18); CALCIUM 8.5 mg/dL (8.5-10.1); CREATININE 0.9 mg/dL (0.55-1.02); EST CRCL DRUG DOSING (CG) 47.76 mL/min; POTASSIUM,K 4.3 mEq/L (3.5-5.1); PROTEIN TOTAL,TP 6.8 g/dl (6.4-8.2)
[2023-05-29 20:59] LABS: BASOPHILS PERCENT AUTO 0.5 % (0.0-1.0); EOSINOPHILS ABSOLUTE AUTO 0.2 K/mm3 (0.0-0.4); EOSINOPHILS PERCENT AUTO 3.3 % (0.0-6.0); HEMATOCRIT 35.6 % (37.0-47.0); HEMOGLOBIN 12.9 gm/dl (12.0-16.0); IMMATURE GRAN ABSOLUTE AUTO 0.02 K/mm3 (0.00-0.05); IMMATURE GRAN PERCENT AUTO 0.3 % (0.0-0.4); LYMPHOCYTES ABSOLUTE AUTO 1.8 K/mm3 (1.0-4.8); LYMPHOCYTES PERCENT AUTO 27.5 % (24.0-44.0); MEAN CORPUSCULAR HEMOGLOBIN 32.7 pg (28.0-32.0); MEAN CORPUSCULAR HGB CONC 36.2 g/dl (32.0-36.0); MEAN CORPUSCULAR VOLUME 90.4 fl (83.0-99.0); MEAN PLATELET VOLUME 8.1 fl (9.4-12.3); MONOCYTES ABSOLUTE AUTO 0.7 K/mm3 (0.0-0.8); MONOCYTES PERCENT AUTO 9.8 % (0.0-8.0); NEUTROPHILS ABSOLUTE AUTO 3.9 K/mm3 (1.8-7.7); NEUTROPHILS PERCENT AUTO 58.6 % (41.0-71.0); PLATELET COUNT,PLT 210 K/mm3 (150-400); RED BLOOD CELL COUNT 3.94 M/mm3 (4.10-5.30); WHITE BLOOD CELL COUNT,WBC 6.62 K/mm3 (3.9-11.3)
[2023-05-29] MEDS ORDERED: NS + KCl 20mEq/L 500 ML IV SCH (21:30)
[2023-05-29 22:05] LABS: APPEARANCE,URINE CLEAR (Clear); BILIRUBIN,URINE NEGATIVE (Negative); COLOR,URINE YELLOW (Yellow); GLUCOSE,URINE NEGATIVE (Negative); KETONES,URINE 1+ (Negative); LEUKOCYTE ESTERASE,URINE 2+ (Negative); NITRITE,URINE NEGATIVE (Negative); OCCULT BLOOD,URINE NEGATIVE (Negative); PH,URINE 6.5 (5.0-8.0); PROTEIN,URINE NEGATIVE (Negative); UROBILINOGEN,URINE 0.2 (0.2-1.0)
[2023-05-29 22:17] LABS: RBC,URINE 0-5 /hpf (0-5)
[2023-05-29 22:18] LABS: BACTERIA,URINE FEW /hpf (FEW); MUCUS,URINE FEW /hpf (FEW); SQUAMOUS EPITHELIAL CELLS,UR 0-5 /hpf (0-5)
[2023-05-29 22:24] LABS: SODIUM,URINE RANDOM 28 mEq/L (40-220)
[2023-05-29 22:26] LABS: OSMOLALITY,URINE 131 mosm/kg (400-1100)
[2023-05-30] MEDS ORDERED: Carvedilol 12.5 MG Tab PO ONE (00:39)
[2023-05-30] MEDS ORDERED: Losartan 50 MG Tab PO ONE (00:40)
[2023-05-30] MEDS ORDERED: Melatonin 3 MG Tab PO ONE (01:00)
[2023-05-30] MEDS ORDERED: diphenhydrAMINE 25 MG Cap PO PRN (03:13)
[2023-05-30] MEDS ORDERED: Acetaminophen 325 MG Tab PO PRN (03:14)
[2023-05-30] MEDS: Levothyroxine 100 MCG Tab PO SCH ×2 (07:09→08:59)
[2023-05-30] MEDS ORDERED: Albuterol 6.7 GM Inhaler INH PRN (07:26)
[2023-05-30] MEDS ORDERED: Carvedilol 6.25 MG Tab PO SCH ×2 (08:00→18:00)
[2023-05-30] MEDS ORDERED: Losartan 50 MG Tab PO SCH (09:00)
[2023-05-30 10:53] LABS: CREATININE,URINE RAND 216.8 mg/dL (30.0-125.0); PROTEIN CREATININE RATIO,URINE 195.6 mg/g (0-149); PROTEIN,URINE RANDOM 42.4 mg/dL (0.0-11.8)
[2023-05-30] MEDS ORDERED: Ondansetron 4 MG Tab.DIS PO PRN ×3 (10:59→11:32)
[2023-05-30] MEDS ORDERED: Citalopram 10 MG Tab PO SCH (11:45)
[2023-05-30 12:32] VITALS: BP 136/53
[2023-05-30 12:55] VITALS: PULSE 56
[2023-05-30] MEDS ORDERED: Diatrizoate Meglumine/Diatrizoate Sodium 37% 120 ML Bottle PO ONE (13:23)
[2023-05-31] MEDS ORDERED: Pantoprazole 40 MG Tab.CR PO SCH (08:00)
[2023-05-31 09:42] LABS: URINE CHLORIDE 26 mEq/L
[2023-05-31 09:42] LABS: URINE CHLORIDE 26 mEq/L
== END 2023-05-30 14:02 | disposition home or self-care (01) | DRG 641 ==
LOC: JD.ED 16:58 → JD.MS 22:35 → OBSVTOIN 05-30 11:00
PROVIDERS: ADMIT Pediatrics; ATTEND Pediatrics
DX: E87.1 Hypo-osmolality and hyponatremia (principal); E78.00 Pure hypercholesterolemia, unspecified; I10 Essential (primary) hypertension; J45.909 Unspecified asthma, uncomplicated; M19.90 Unspecified osteoarthritis, unspecified site; F32.A Depression, unspecified; E03.9 Hypothyroidism, unspecified; K58.9 Irritable bowel syndrome, unspecified; E86.1 Hypovolemia; K31.9 Disease of stomach and duodenum, unspecified; D64.9 Anemia, unspecified; Z79.899 Other long term (current) drug therapy; Z86.16 Personal history of COVID-19; Z90.89 Acquired absence of other organs; Z98.890 Other specified postprocedural states; Z98.51 Tubal ligation status; Z96.659 Presence of unspecified artificial knee joint; Z87.891 Personal history of nicotine dependence
CPT/HCPCS: 36415; 71260; 71260-26; 74177; 74177-26; 80053; 81001; 81003; 82436; 82570; 83735; 83930; 83935; 84133; 84156; 84295; 84300; 85025; 99284; A9270-GY; G0378; Q9963